=== PATIENT | female | born 1945 | race Caucasian/White ===

== ENCOUNTER 2020-07-21 10:43 | Outpatient (CLI) | payer MEDICARE, SELFPAY ==
--- NOTE | ~2020-07-21 | MM_ITS ---
EXAMINATION: MM screening [facility] BI w rajiv HISTORY: Screening mammogram TECHNIQUE: Craniocaudal and mediolateral oblique 3-D tomosynthesis images were obtained and synthetic 2-D images were generated. CAD analysis was submitted and interpreted. COMPARISON: 07/25/2018, 06/23/2017, 06/15/2016 BREAST PARENCHYMAL COMPOSITION: There are scattered areas of fibroglandular density. FINDINGS: There is no evidence of suspicious mass, calcification, or architectural distortion to sugg est malignancy in either breast. There has been no suspicious interval change. IMPRESSION: 1. No mammographic evidence of malignancy. 2. Recommend routine screening mammography in one year. BI-RADS Category 1: Negative Reviewed, dictated and finalized at location A. ITION THERAPIST
--- NOTE | ~2020-07-21 | DEXA_ITS ---
Bone Density Report Name: Umu Banuelos Age: 74 Sex: Female Ethnicity: White Date of : 1945 Indication: postmenopausal; screening for osteoporosis; Referring Provider: Dutch Trinidad Study: Bone densitometry was performed. Exam Date: July 21, 2020 Accession number: [id number] Bone Density: Region BMD T-score Z-score Classification AP Spine(L1-L4) 1.150 0.9 3.2 Normal Femoral Neck (Left) 0.658 -1.7 0.3 Osteopenia Total Hip (Left) 0.907 -0.3 1.4 Normal Femoral Neck (Right) 0.751 -0.9 1.1 Normal Total Hip (Right) 0.963 0.2 1.9 Normal Femoral Neck Mean 0.704 -1.3 0.7 Osteopenia Total Hip Mean 0.935 -0.1 1.6 Normal World Health Organization criteria for BMD impression classify patients as: Normal (T-score at or above -1.0), Osteopenia (T-score between -1.0 and -2.5), or Osteoporosis (T-score at or below -2.5). 10-year Fracture Risk(1): Major Osteoporotic Fracture 10% Hip Fracture 2.0% Reported Risk Factors: [place] (), Neck BMD=0.658, BMI=38.7 (1) FRAX(R) Version 3.08. Fracture probability calculated for an untreated patient. Fracture probability may be lower if the patient has received treatment. Clinical Information Provided by Patient: Has used the following medications: Vitamin D, Calcium Drinks caffeinated beverages Onset of menses at age 16 Number of children 4 Impression: The patient has low bone mass, based on the Left Femoral Neck T-score. Discussion: BONE DENSITY IS LOW AT ONE OR MORE SKELETAL SITES. This patient's lowest T-score is low at one or more skeletal sites. It meets the World Health Organization's (WHO) criteria for ?low bone mass? (T-score between -1.0 and -2.5). The patient's 10-year risk of fracture as calculated by FRAX is less than the threshold where pharmacological therapy is recommended by the National Osteoporosis Foundation (NOF). However, all treatment decisions require clinical judgment and consideration of individual patient factors, including patient preferences, comorbidities, previous drug use, risk factors not captured in the FRAX model (e.g., frailty, falls, vitamin D deficiency, increased bone turnover, interval significant decline in bone density) and possible under or overestimation of fracture risk by FRAX. The patient should follow a healthful lifestyle (good nutrition with adequate calcium and vitamin D, and appropriate weight-bearing exercise). Follow-Up: Consider repeating this study in 2 to 3 years to reassess this patient's status, or sooner if there is some new clinical indication. Reported by: Dr. Patricio Arriola on 07/21/2020 11:26:00 AM. Reviewed, dictated and finalized at location A. BARRERA
== END 2020-07-21 10:44 | disposition home or self-care (01) ==
LOC: CHSIMG 10:46
PROVIDERS: PCP Internal Medicine; Visit Provider Internal Medicine
DX: Z12.31 Encounter for screening mammogram for malignant neoplasm of breast (principal); M81.0 Age-related osteoporosis without current pathological fracture
CPT/HCPCS: 77063; 77067; 77080

== ENCOUNTER 2020-08-11 11:04 | Outpatient (RCR) | payer MEDICARE, SELFPAY ==
--- NOTE | 2020-08-11 12:13 | PTOPEVAL ---
Thank you for referring Umu Banuelos to [facility].? The patient is scheduled to be seen for therapy? __3__x/week for 12 visits. Please review, sign, date and return this plan of care CECILY. I agree with and certify that the following plan of care is medically necessary. Referring Physician Date Admitting Provider: Attending Provider: Dutch Trinidad MD Referring Provider: *PT Outpatient Evaluation Start: 08/11/20 11:12 Freq: Status: Active Protocol: Document 08/11/20 11:13 ANN-MARIE (Rec: 08/11/20 12:12 ANN-MARIE [email or web address]) Therapy Assessment Status Assessment Status Assessment Status Evaluation Evaluation Information Problem Diagnosis right shoulder pain Onset 06/11/20 Subjective Information Pt. reports that she had a Query Text:As Reported By Patient/ gradual on set of pain about 2 Family months ago. She states that she expereinced no trauma. She states that pain is most notable with reaching behind her back and overhead. She states that shoulder pain will wake her at night and notes difficulty with reaching into her top cabinets. She states that pain is mostly located on the top and front of the right shoulder and it is more of an ache. She states that her goal is to be able to move the right arm with less pain. Prior Level of Function Activity Level (Last 3 Months) Occupation retired Hand Dominance Right Activity of Daily Living Ability Independent Indoor/Home Mobility Independent Community Mobility Independent Stairs Ability Independent Functional Cognition (Planning, Shopping Independent , Taking Medications) Cooking Yes Cleaning Yes Laundry Yes Shopping Yes Driving Yes Pain Assessment Timing of Pain Assessment Timing of Pain Assessment Pre-Treatment Pain Scale Pain Scale Used Numeric (1 - 10) Self Report Pain Assessment Right Upper Shoulder(s) Reported Pain Level 2 Pain Description Aching Lowest Pain Intensity 2 Greatest Pain Intensity 5 Pain Aggravating Factors Exercise/Activity,Lifting, Supine Pain Score Pain Score
== END 2020-09-05 14:51 | disposition home or self-care (01) ==
LOC: CHSPT 11:04
PROVIDERS: PCP Internal Medicine; Visit Provider Internal Medicine
DX: M25.511 Pain in right shoulder (principal)
CPT/HCPCS: 97014; 97110; 97161; G0283

== ENCOUNTER 2021-03-05 01:28 | Day surgery (SDC) | payer MEDICARE, SELFPAY ==
[2021-02-18 12:48] VITALS: BMI 38.7
[2021-03-05 06:53] VITALS: BMI 37.8
[2021-03-05] MEDS: LACTATED RINGERS 1,000 ML 30 ML IV CONT (07:10)
--- NOTE | 2021-03-05 07:29 | WPDANESEPPF ---
Anes - Initial Pre Proc Eval Procedure: Operation Date: 03/05/21 08:00 Proposed Procedures p Screening Colonoscopy - Nilesh Cruz DO Date/Time: 03/05/21 07:29 Surgeon: Nilesh Cruz DO Pre Op Diagnosis: Neosplasm Screening Patient Data Age: 75 Gender: F Height: 1.68 m Weight: 106.2 kg Allergies Allergy/AdvReac Type Severity Reaction Status Date / Time No Known Allergies Allergy Mild Verified 03/05/21 06:50 Home Medications Medication Instructions Recorded Confirmed Type gabapentin 300 mg capsule See Rx Instructions .ROUTE 05/05/20 03/05/21 Rx .COMPLEX #180 cap cholecalciferol (vitamin D3) 125 mcg PO DAILY 02/18/21 03/05/21 History [Dialyvite Vitamin D] cyanocobalamin (vitamin B-12) 1,000 mcg SUBLINGUAL DAILY 02/18/21 03/05/21 History [Vitamin B-12] meloxicam 15 mg PO DAILY 02/18/21 03/05/21 History multivitamin-iron (hematinic) 1 tablet PO DAILY 02/18/21 03/05/21 History [Super B-Complex] Patient hx anesthesia problems: none Family hx anesthesia problems: none [facility] Past Medical History Medical History (Updated 03/05/21 @ 07:29 by Alfonso Herrera MD) Obesity GHANSHYAM (obstructive sleep apnea) Surgical History Surgical History (Updated 03/05/21 @ 07:29 by Alfonso Herrera MD) Hx of tonsillectomy Social History Social History Smoking status: Never smoker Second hand tobacco smoke exposure: No Alcohol intake: current Alcohol use details: 2 PER MONTH Substance use: never Substance use type: does not use Living arrangements: with family Spiritual care concerns: No Anes - Eval Final PreProcedure Day of Procedure 03/05/21 07:29 Patient weight: obese Heart: regular rate and rhythm Lungs: clear to auscultation Airway: Mallampati scale class II Neurological: alert and oriented Last oral intake: >/= 8 hours ASA classification: III Emergent: no Anesthetic plan: proceed Anesthesia type and monitoring: general GIVS and standard monitoring Informed Consent: The patient's anesthetic plan and its attendant risks and benefits were discussed with the patient/family/POA. Questions were solicited and answers provided to the satisfaction of the patient/family/POA.
--- NOTE | 2021-03-05 08:22 | PM.IMHP ---
H&P: HPI History of Present Illness Date/Time: 03/05/21 08:22 Chief Complaint: History of colon polyps Narrative: this is a 75-year-old woman who presents for colonoscopy. Her last colonoscopy was 5 years ago. She had polyps removed at that time. She denies any hematochezia or melena. She denies any family history of colon cancer. Review of Systems Review of Systems: All systems reviewed & are unremarkable except as noted in HPI and below Constitutional: Constitutional: Denies chills, Denies fever(s), Denies headache(s) and Denies weight loss Eyes: Eyes: Denies change in vision ENT: Denies dizziness, Denies headache(s), Denies neck mass and Denies throat swelling Cardiovascular: Cardiovascular: Denies chest pain, Denies lightheadedness and Denies dyspnea Respiratory: Respiratory: Denies cough, Denies dyspnea and Denies wheezing Gastrointestinal: Gastrointestinal: Denies abdominal pain, Denies change in bowel habits, Denies nausea and Denies vomiting Genitourinary: Genitourinary: Denies hematuria and Denies dysuria Musculoskeletal: Musculoskeletal: Reports as per HPI Integumentary/Breasts: Skin/Breast: Reports as per HPI Neurologic: Denies dizziness and Denies headache(s) Allergic/Immunologic: Allergic/Immunologic: Denies throat swelling and Denies wheezing PMFSH Past Medical History Medical History (Updated 03/05/21 @ 08:23 by Nilesh Cruz DO) Obesity GHANSHYAM (obstructive sleep apnea) Surgical History Surgical History (Updated 03/05/21 @ 07:29 by Alfonso Herrera MD) Hx of tonsillectomy Social History Social History Smoking status: Never smoker Second hand tobacco smoke exposure: No Alcohol intake: current Alcohol use details: 2 PER MONTH Substance use: never Substance use type: does not use Living arrangements: with family Spiritual care concerns: No Meds Home Medications and Allergies Home Medications Medication Instructions Recorded Confirmed Type gabapentin 300 mg capsule See Rx Instructions .ROUTE 05/05/20 03/05/21 Rx .COMPLEX #180 cap cholecalciferol (vitamin D3) 125 mcg PO DAILY 02/18/21 03/05/21 History [Dialyvite Vitamin D] cyanocobalamin (vitamin B-12) 1,000 mcg SUBLINGUAL DAILY 02/18/21 03/05/21 History [Vitamin B-12] meloxicam 15 mg PO DAILY 02/18/21 03/05/21 History multivitamin-iron (hematinic) 1 tablet PO DAILY 02/18/21 03/05/21 History [Super B-Complex] Allergies Allergy/AdvReac Type Severity Reaction Status Date / Time No Known Allergies Allergy Mild Verified 03/05/21 06:50 Exam Const: General: no acute distress and alert Orientation/consciousness: patient oriented x3 HENMT: Head: normocephalic and atraumatic Ears: hearing grossly normal bilaterally General nose exam: Normal nares present Mouth: Yes Normal oral and palatal mucosa present Eyes: Periorbital: periorbital findings normal Sclera: sclerae normal EOM: EOMs intact bilaterally Neck: Neck: normal visual inspection, no lymphadenopathy and trachea midline Chest: Chest palpation & inspection: normal inspection of the chest Resp: Effort & Inspection: normal respiratory effort Auscultation: clear to auscultation bilaterally Cardio: Jugular venous distension: no JVD Rate: regular rate Rhythm: regular rhythm Heart sounds: S1 normal heart sound present and S2 normal heart sound present Peripheral pulses: Peripheral pulses 2+ throughout GI: Inspection: normal to inspection GI Palp: Yes Soft to palpation, No Tenderness to palpation present (GI), No Guarding due to palpation present (GI) and No Rebound tenderness present Percussion: Yes normal to percussion Auscultation: normal bowel sounds : General: Yes no CVA tenderness Back/Spine/Pelvis: Back: no CVA tenderness Neuro: General: patient oriented x3, no focal motor deficits and CN's II-XI intact bilaterally Cognition (Neuro): normal cognition Speech
[2021-03-05 09:03] VITALS: BP 111/61; PULSE 62; RESP 19; O2SAT 98
[2021-03-05 09:13] VITALS: BP 119/74; PULSE 59; RESP 18; O2SAT 98
[2021-03-05 09:23] VITALS: BP 132/76; PULSE 59; RESP 18; O2SAT 98
== END 2021-03-05 09:41 | disposition home or self-care (01) ==
PROVIDERS: PCP Internal Medicine; Visit Provider Surgery
PROC: 0DJD8ZZ Inspection of Lower Intestinal Tract, Via Natural or Artificial Opening Endoscopic (ICD-10-PCS; CPT 45378; principal; 2021-03-05 08:00)
DX: Z12.11 Encounter for screening for malignant neoplasm of colon (principal); K63.5 Polyp of colon; G47.33 Obstructive sleep apnea (adult) (pediatric); E66.9 Obesity, unspecified; Z68.37 Body mass index [BMI] 37.0-37.9, adult
CPT/HCPCS: 45380; 88305; J7120

== ENCOUNTER 2021-08-19 11:05 | Outpatient (RCR) | payer MEDICARE, SELFPAY ==
--- NOTE | 2021-08-19 16:00 | PTOPEVAL ---
Thank you for referring Umu Banuelos to [facility].? The patient is scheduled to be seen for therapy? __3__x/week for 12 visits. Please review, sign, date and return this plan of care CECILY. I agree with and certify that the following plan of care is medically necessary. Referring Physician Date Admitting Provider: Attending Provider: Dutch Trinidad MD Referring Provider: *PT Outpatient Evaluation Start: 08/19/21 10:46 Freq: Status: Active Protocol: Document 08/19/21 10:47 ANN-MARIE (Rec: 08/19/21 11:58 ANN-MARIE [email or web address]) Therapy Assessment Status Assessment Status Assessment Status Evaluation Outpatient Past Medical History Neurological History Hx Other Neurological Disorders Yes: NEUROPATHY Cardiovascular History Hx Cardiac Disorders No Significant History Respiratory History Hx Sleep Apnea Yes Gastrointestinal History Hx Polyps Yes Genitourinary History Hx Urinary Tract Infection Yes Musculoskeletal History Hx Arthritis Yes: BILATERAL KNEES Hx Fractures Yes: VERTEBRA 2010 Hematological History Hx Hematological Disorders No Significant History Endocrine History Hx Endocrine Disorders No Significant History HEENT History Hx Tonsillectomy Yes Integumentary History Hx Skin Disorders No Significant History Reproductive History Hx Post Menopausal Yes Psychosocial History Hx Psychiatric Disorders No Significant History Pain History Has Past Pain Affected Your Daily Life Yes: ARTHRITIS BILATERAL KNEES Anesthesia History Hx Anesthesia Reactions No Significant History Evaluation Information Problem Diagnosis bilateral knee pain Onset 08/03/21 Subjective Information Pt. reports that she has had Query Text:As Reported By Patient/ on/off knee pain for several Family years. She recently had a pain flare up. She reports that she has had injections in the past that help, but has not since November. Pt. reports that getting up from a seated position will increase her pain. She reports she can walk for about 30 minutes prior to pain increase. She states that her goal is to decrease her knee pain. Prior Level of Function Activity Level (Last 3 Months) Occupation retired Hand Dominance Right Activity of Daily Living Ability Independent Indoor/Home Mobility Independent Community Mobility
== END 2021-09-30 16:48 | disposition home or self-care (01) ==
LOC: CHSPT 11:05
PROVIDERS: PCP Internal Medicine; Visit Provider Internal Medicine
DX: M25.562 Pain in left knee (principal); M25.561 Pain in right knee
CPT/HCPCS: 97014; 97110; 97161; 97530; G0283

== ENCOUNTER 2021-09-07 08:52 | Outpatient (CLI) | payer MEDICARE, SELFPAY ==
--- NOTE | ~2021-09-07 | XR_ITS ---
EXAMINATION: XR foot LT min 3V DATE: 09/07/2021 09:14 INDICATION: Chronic left midfoot pain TECHNIQUE: Weight bearing dorsal plantar, two oblique and lateral views of the left foot were obtain ed. COMPARISON: None. FINDINGS: Diffuse osteopenia. Alignment is normal. No fracture. Polyarticular osteoarthritis, severe at the fir st tarsal metatarsal joint, moderate severity at the second and third tarsal metatarsal joints and a few interphalangeal joints and mild at the remaining joints at the left foot and ankle. Lucencies wit h thin sclerotic margins at both sides of the second and third tarsal metatarsal joints most likely d egenerative subarticular cystic change. Moderate-sized plantar calcaneal spur and small Achilles calc aneal spur. IMPRESSION: 1. 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 Reviewed, dictated and finalized at location A. NER IMPRESSION: 1. Polyarticular osteoarthritis, moderate to severe at the first-third tarsal m etatarsal joints.
== END 2021-09-07 08:53 | disposition home or self-care (01) ==
LOC: CHSIMG 08:55
PROVIDERS: PCP Internal Medicine; Visit Provider Podiatrist
DX: M79.672 Pain in left foot (principal)
CPT/HCPCS: 73630

== ENCOUNTER 2021-12-15 12:07 | Outpatient (CLI) | payer MEDICARE, SELFPAY ==
--- NOTE | ~2021-12-15 | MM_ITS ---
EXAMINATION: MM screening [facility] BI w rajiv HISTORY: Screening TECHNIQUE: Craniocaudal and mediolateral oblique 3-D tomosynthesis images were obtained and synthetic 2-D images were generated. CAD analysis was submitted and interpreted. COMPARISON: Comparison to multiple prior studies sequentially, with oldest reviewed study dated 01/2013. BREAST PARENCHYMAL COMPOSITION: There are scattered areas of fibroglandular density. FINDINGS: There is no evidence of suspicious mass, calcification, or architectural distortion to sugg est malignancy in either breast. There has been no suspicious interval change. IMPRESSION: 1. No mammographic evidence of malignancy. 2. Recommend routine screening mammography in one year. BI-RADS Category 1: Negative Reviewed, dictated and finalized at location A.
== END 2021-12-15 12:08 | disposition home or self-care (01) ==
LOC: CHSIMG 12:09
PROVIDERS: PCP Internal Medicine; Visit Provider Internal Medicine
DX: Z12.31 Encounter for screening mammogram for malignant neoplasm of breast (principal)
CPT/HCPCS: 77063; 77067

== ENCOUNTER 2021-12-25 11:32 | Outpatient (CLI) | payer MEDICARE, SELFPAY ==
--- NOTE | ~2021-12-25 | XR_ITS ---
EXAMINATION: XR knee RT min 4V DATE: 12/25/2021 12:12 INDICATION: Right knee pain. TECHNIQUE: 4 views of right knee were obtained. COMPARISON: None. FINDINGS: There is varus angulation at the knee. There is lateral subluxation of patella. No fracture . There is severe osteoarthritis of medial and patellofemoral compartments and mild osteoarthritis of lateral compartment. No knee joint effusion. IMPRESSION: 1. Severe right knee osteoarthritis. Reviewed, dictated and finalized at location A.
--- NOTE | ~2021-12-25 | XR_ITS ---
XR knee LT min 4V 12/25/2021 12:12 Indication: Left knee pain Procedure: 4 views left knee Comparison: No prior studies for comparison. Findings: There is severe tricompartment osteoarthritis of the left knee. No fracture, subluxation or dislocation. No significant joint effusion. No radiopaque foreign bodies. Impression: 1: Severe osteoarthritis of the left knee. Reviewed, dictated and finalized at location B. Impression: 1: Severe osteoarthritis of the left knee.
== END 2021-12-25 11:33 | disposition home or self-care (01) ==
LOC: CHSIMG 11:36
PROVIDERS: PCP Internal Medicine; Visit Provider Internal Medicine
DX: M25.562 Pain in left knee (principal); M25.561 Pain in right knee; M17.0 Bilateral primary osteoarthritis of knee
CPT/HCPCS: 73564

== ENCOUNTER 2022-04-21 10:43 | Outpatient (CLI) | payer MEDICARE, SELFPAY ==
--- NOTE | 2022-04-21 11:00 | ECG_ITS ---
Measurements Intervals [place] Rate: 48 P: 34 AR: 181 QRS: 5 QRSD: 89 T: 24 QT: 451 QTc: 406 Interpretive Statements SINUS BRADYCARDIA LEFT VENTRICULAR HYPERTROPHY MINIMAL Q WAVES- HIGH LATERAL LEADS ABNORMAL ECG COMPARED TO ECG 11/20/2018 16:59:11 SINUS BRADYCARDIA NOW PRESENT Electronically Signed On 04-21-2022 14:40:32 CDT by Awais Sanchez D.O.
[2022-04-21 11:24] LABS: Basophils Absolute Auto 0.02 K/mm3 (0.00-0.10); Basophils Percent Auto 0.5 % (0.0-1.0); Eosinophils Absolute Auto 0.04 K/mm3 (0.02-0.50); Hematocrit 40.3 % (35.0-42.0); Hemoglobin 12.6 g/dL (11.7-13.8); Immature Granulocyte Absolute 0.03 K/mm3 (0.00-0.00); Immature Granulocyte Percent A 0.8 % (0.0-0.0); Lymphocytes Absolute Auto 0.96 K/mm3 (1.10-4.50); Mean Corpuscular HGB Conc 31.3 g/dL (32.0-36.0); Mean Corpuscular Hemoglobin 29.9 pg (27.0-31.0); Mean Corpuscular Volume 95.5 fL (78.0-102.0); Mean Platelet Volume 9.9 fl (9.2-11.8); Monocytes Absolute Auto 0.33 K/mm3 (0.10-0.90); Monocytes Percent Auto 8.3 % (2.0-11.0); Neutrophils Absolute Auto 2.6 K/mm3 (1.7-7.2); Neutrophils Percent Auto 65.4 % (50.0-70.0); Platelet Count Result 198 K/mm3 (150-420); Red Blood Count 4.22 M/mm3 (4.20-5.40); Red Cell Distribution Width 13.5 % (11.6-14.4)
[2022-04-21 11:47] LABS: Influenza Control Valid (Valid); SARS-CoV-2 Ag Negative (Negative)
[2022-04-21 11:49] LABS: Strep Group A RT-PCR Not Detected (Negative)
[2022-04-21 11:52] LABS: Anion Gap 7 mmol/L (8-16); Blood Urea Nitrogen 11 mg/dL (7-18); Calcium 8.9 mg/dL (8.5-10.1); Carbon Dioxide 27 mmol/L (21-32); Chloride 106 mmol/L (98-108); Estimated Glomerular Filt Rate > 60; Glucose 88 mg/dL (70-99); Osmolality Calculated 288 mOsm/kg (285-295); Potassium 3.8 mmol/L (3.5-5.1); Sodium 140 mmol/L (136-145); Thyroid Stimulating Hormone 1.11 uIU/mL (0.36-3.74)
== END 2022-04-21 10:44 | disposition home or self-care (01) ==
LOC: CHSLAB 10:46
PROVIDERS: PCP Internal Medicine; Visit Provider Internal Medicine
DX: J06.9 Acute upper respiratory infection, unspecified (principal); R00.1 Bradycardia, unspecified; Z20.822 Contact with and (suspected) exposure to COVID-19
CPT/HCPCS: 80048; 84439; 84443; 84481; 85025; 87426; 87651; 87804; 93005; C9803

== ENCOUNTER 2022-05-07 13:18 | Outpatient (CLI) | payer MEDICARE, SELFPAY ==
--- NOTE | 2022-05-07 01:00 | ECHO_ITS ---
Patient Info Name: Umu Banuelos Age: 76 years : 1945 Gender: Female Ht: 66 in Wt: 240 lbs BSA: 2.30 m2 HR: 60 bpm BP: 130 / 70 mmHg Heart Rhythm: Sinus Rhythm Technical Quality: Fair Exam Date: 05/07/2022 1:13 PM Exam Location: [facility] Patient Status: Outpatient Admit Date: 05/07/2022 Staff Ordering Physician: Dutch Trinidad MD Squirrel Man: Stacy Vazquez RDCS Attending Provider: Dutch Trinidad MD Referring Physician: Amos HUNTER; Exam Type: CA echo doppler color flow Study Info Indications R94.31 - Abnormal electrocardiogram ECG EKG Complete two-dimensional, color flow and Doppler transthoracic echocardiogram is performed. Summary 1. Complete two-dimensional, color flow and Doppler transthoracic echocardiogram is performed. 2. Left ventricular chamber dimension is normal. 3. Left ventricular systolic function is normal, estimated at 65-70%. 4. There is mildly increased left ventricular wall thickness. 5. The left ventricular diastolic function is grade II diastolic dysfunction. 6. E/e' 16 is elevated. 7. Left atrial chamber dimension is moderately enlarged. 8. There is mild aortic valve sclerosis. 9. The mitral valve has moderately calcified annulus. 10. There is trace mitral valve regurgitation. 11. There is mild tricuspid valve regurgitation. 12. Mild pulmonary hypertension, estimated pulmonary arterial systolic pressure is 40 mmHg. Left Ventricle E/e' 16 is elevated. Left ventricular chamber dimension is normal. Left ventricular systolic function is normal, estimated at 65-70%. There is mildly increased left ventricular wall thickness. The left ventricular diastolic function is grade II diastolic dysfunction. Right Ventricle Right ventricular systolic function is normal and with normal TAPSE 2.1 cm. Right ventricular chamber dimension is normal. Left Atria Left atrial chamber dimension is moderately enlarged. Right Atria Right atrial chamber dimension is normal. Aortic Valve The aortic valve is trileaflet. There is mild aortic valve sclerosis. There is no aortic valve stenosis. There is no aortic valve regurgitation. Pulmonic Valve There is no pulmonic regurgitation. Mitral Valve The mitral valve has moderately calcified annulus. There is no mitral valve stenosis. There is trace mitral valve regurgitation. Tricuspid Valve There is mild tricuspid valve regurgitation. Mild pulmonary hypertension, estimated pulmonary arterial systolic pressure is 40 mmHg. Pericardium/Pleural There is no pericardial effusion. Inferior Vena Cava Normal inferior vena cava with >50% collapse upon inspiration consistent with normal right atrial pressure, 5 mmHg. Aorta The aortic root size at the sinus of Valsalva is normal. Left Ventricular Outflow Tract Name Value Normal LVOT 2D LVOT Diameter 1.9 cm LVOT Doppler LVOT Peak Velocity 144 cm/s LVOT Peak Gradient 8 mmHg LVOT Mean Gradient 4 mmHg LVOT VTI 34 cm LVOT VTI/AV VTI Rati
== END 2022-05-07 13:19 | disposition home or self-care (01) ==
LOC: CHSIMG 13:19
PROVIDERS: PCP Internal Medicine; Visit Provider Internal Medicine
DX: R94.31 Abnormal electrocardiogram [ECG] [EKG] (principal)
CPT/HCPCS: 93306

== ENCOUNTER 2022-07-13 10:59 | Outpatient (RCR) | payer MEDICARE, SELFPAY ==
--- NOTE | 2022-07-13 11:51 | PTOPEVAL1 ---
Assessment and note entered by Dang Simpson, PT Evaluation Information Assessment Status Evaluation Diagnosis B Knee Pain Subjective Information Umu Banuelos reports she has been diagnosed with osteoarthritis in both knees after x-rays. She had PT about a year ago. She was referred by her new primary care physician to come back to PT to learn exercises again. She has been getting injections in her knees for the last 3 years that is helping keep her pain down. Her most recent injections were in June 2022. She is noting more pain and limitations in motions in the left knee. She is having difficulty with stairs and she has a basement she goes into for laundry and 2 stairs into the home. She notes she has to use the handrail. Reported Pain Level Pain Score 0: Self Report Assessment PT Clinical Summary Umu Banuelos presents with bilateral knee pain and has been diagnosed with osteoarthritis in the past. She is getting injections for pain control but notes weakness in her knees and has difficulty with stairs. She objectively demonstrates deficits in bilateral knee AROM, decreased bilateral knee and hip strength, impaired gait, decreased dynamic balance, and decreased functional abilities. She will benefit from skilled PT to address these limitations. Plan of Care Interventions Electrical Stimulation,Hot Pack/Cold Pack,Manual Therapy,Neuro Re-education,Patient/Caregiver Educati,Therapeutic Activities,Therapeutic Exercise PT Services Indicated Yes Treatment Frequency and 2 times a week for 8 visits Duration These treatments will address the objective and functional deficits as defined above. The patient will be advanced safely and appropriately in order for the patient to progress towards his/her prior level of function. Additional exercises will be introduced and as well as a comprehensive home exercise program upon discharge, if needed, ?to ensure carryover of functional gains achieved in the clinic. This treatment plan has been reviewed and agreement upon by the patient.
--- NOTE | 2022-07-20 14:55 | PCPTNOTE ---
Umu came in to have her left upper thigh assessed. She started noticing pain in the left upper thigh on 07/19/22 when she brushed it with her hand. She presents with a varicose vein in the upper and medial inner thigh that is tender to palpation. There is stiffness palpated in the tissue surrounding the varicose vein and it extends laterally and distally approximately 3 inches. No signs of bruising, redness, or significant swelling noted. She demonstrates intact left knee and hip strength today. She was referred to call her PCP for further evaluation.
--- NOTE | 2022-09-23 14:14 | PTOPDC ---
Assessment and note entered by Dang Simpson, PT Evaluation Information Assessment Status Discharge - Pt Not Presen Diagnosis B Knee Pain Onset 06/17/22 Subjective Information Umu Banuelos reports she has been diagnosed with osteoarthritis in both knees after x-rays. She had PT about a year ago. She was referred by her new primary care physician to come back to PT to learn exercises again. She has been getting injections in her knees for the last 3 years that is helping keep her pain down. Her most recent injections were in June 2022. She is noting more pain and limitations in motions in the left knee. She is having difficulty with stairs and she has a basement she goes into for laundry and 2 stairs into the home. She notes she has to use the handrail. Assessment PT Clinical Summary Umu Banuelos attended 2 skilled PT visits for bilateral knee pain. She was educated in a home exercise program for hamstring flexibility, knee ROM, and knee/hip strength. At her second visit, she was reporting no pain. She did not return to PT after the second visit so she will be discharged from formal PT. Plan of Care Treatment Frequency and Discharge Duration
== END 2022-07-19 19:00 | disposition home or self-care (01) ==
LOC: CHSPT 10:59
PROVIDERS: PCP Internal Medicine; Visit Provider Internal Medicine
DX: M25.562 Pain in left knee (principal); M25.561 Pain in right knee
CPT/HCPCS: 97110; 97161

== ENCOUNTER 2022-07-23 12:22 | Outpatient (CLI) | payer MEDICARE, SELFPAY ==
--- NOTE | ~2022-07-23 | US_ITS ---
EXAMINATION: US venous doppler [facility] DATE: 07/23/2022 14:57 INDICATION: Lower limb pain TECHNIQUE: Laguerre scale images without and with compression and Doppler images of the bilateral lower e xtremity veins were obtained. COMPARISON: 02/26/2016 FINDINGS: The right common femoral vein, profunda femoral vein, femoral vein, popliteal vein, peroneal trunk, p osterior tibial veins, and greater saphenous vein are patent. There is thrombus in the left popliteal, peroneal, greater saphenous, and lesser saphenous veins. The left common femoral vein, profunda femoral vein, femoral vein, posterior tibial veins are patent. Th ere are thrombosed superficial varicose veins of the left leg. IMPRESSION: 1. Thrombosis of the left popliteal, peroneal, greater saphenous, and lesser saphenous veins. 2. Patent right lower extremity veins. Reviewed, dictated and finalized at location A. ICIAN ANESTHESIOLOGIST IMPRESSION: 1. Thrombosis of the left popliteal, peroneal, greater saphenous, and lesser sa phenous veins. 2. Patent right lower extremity veins.
[2022-07-23 12:41] LABS: Basophils Absolute Auto 0.02 K/mm3 (0.00-0.10); Basophils Percent Auto 0.3 % (0.0-1.0); Eosinophils Absolute Auto 0.11 K/mm3 (0.02-0.50); Eosinophils Percent Auto 1.8 % (1.0-6.0); Hematocrit 41.5 % (35.0-42.0); Hemoglobin 13.1 g/dL (11.7-13.8); Immature Granulocyte Absolute 0.04 K/mm3 (0.00-0.00); Immature Granulocyte Percent A 0.6 % (0.0-0.0); Lymphocytes Absolute Auto 1.05 K/mm3 (1.10-4.50); Mean Corpuscular HGB Conc 31.6 g/dL (32.0-36.0); Mean Platelet Volume 9.7 fl (9.2-11.8); Monocytes Absolute Auto 0.48 K/mm3 (0.10-0.90); Monocytes Percent Auto 7.8 % (2.0-11.0); Neutrophils Absolute Auto 4.5 K/mm3 (1.7-7.2); Neutrophils Percent Auto 72.5 % (50.0-70.0); Platelet Count Result 200 K/mm3 (150-420); Red Blood Count 4.37 M/mm3 (4.20-5.40); Red Cell Distribution Width 13.1 % (11.6-14.4); White Blood Count 6.2 K/mm3 (4.8-10.8)
[2022-07-23 13:03] LABS: D Dimer 1.34 mg/L (0.19-0.50)
[2022-07-23 13:16] LABS: Anion Gap 8 mmol/L (8-16); Blood Urea Nitrogen 17 mg/dL (7-18); Calcium 8.6 mg/dL (8.5-10.1); Carbon Dioxide 28 mmol/L (21-32); Chloride 106 mmol/L (98-108); Estimated Glomerular Filt Rate > 60; Glucose 89 mg/dL (70-99); Osmolality Calculated 294 mOsm/kg (285-295); Potassium 4.2 mmol/L (3.5-5.1); Sodium 142 mmol/L (136-145)
== END 2022-07-23 12:23 | disposition home or self-care (01) ==
PROVIDERS: PCP Family Medicine; Visit Provider Family Medicine
DX: I82.432 Acute embolism and thrombosis of left popliteal vein (principal); I82.452 Acute embolism and thrombosis of left peroneal vein; I82.890 Acute embolism and thrombosis of other specified veins; R79.89 Other specified abnormal findings of blood chemistry
CPT/HCPCS: 36415; 80048; 85025; 85380; 93970

== ENCOUNTER 2022-08-30 14:49 | Outpatient (CLI) | payer MEDICARE, SELFPAY ==
[2022-08-30 15:11] LABS: Basophils Absolute Auto 0.02 K/mm3 (0.00-0.10); Basophils Percent Auto 0.4 % (0.0-1.0); Eosinophils Absolute Auto 0.05 K/mm3 (0.02-0.50); Eosinophils Percent Auto 0.9 % (1.0-6.0); Hematocrit 40.2 % (35.0-42.0); Hemoglobin 12.7 g/dL (11.7-13.8); Immature Granulocyte Absolute 0.03 K/mm3 (0.00-0.00); Immature Granulocyte Percent A 0.6 % (0.0-0.0); Lymphocytes Absolute Auto 1.16 K/mm3 (1.10-4.50); Lymphocytes Percent Auto 21.7 % (18.0-42.0); Mean Corpuscular HGB Conc 31.6 g/dL (32.0-36.0); Mean Corpuscular Hemoglobin 30.1 pg (27.0-31.0); Mean Corpuscular Volume 95.3 fL (78.0-102.0); Mean Platelet Volume 9.6 fl (9.2-11.8); Monocytes Absolute Auto 0.42 K/mm3 (0.10-0.90); Monocytes Percent Auto 7.9 % (2.0-11.0); Neutrophils Absolute Auto 3.7 K/mm3 (1.7-7.2); Neutrophils Percent Auto 68.5 % (50.0-70.0); Platelet Count Result 219 K/mm3 (150-420); Red Blood Count 4.22 M/mm3 (4.20-5.40); Red Cell Distribution Width 13.2 % (11.6-14.4); White Blood Count 5.3 K/mm3 (4.8-10.8)
[2022-08-30 15:28] LABS: INR 1.1; Partial Thromboplastin Time 29.3 SEC (23.90-30.70); Prothrombin Time 11.5 Seconds (9.50-12.10)
== END 2022-08-30 14:50 | disposition home or self-care (01) ==
LOC: CHSLAB 14:51
PROVIDERS: PCP Internal Medicine; Visit Provider Internal Medicine
DX: R21 Rash and other nonspecific skin eruption (principal); Z79.01 Long term (current) use of anticoagulants
CPT/HCPCS: 36415; 85025; 85610; 85730

== ENCOUNTER 2023-01-05 14:54 | Outpatient (RCR) | payer MEDICARE, SELFPAY ==
--- NOTE | 2023-01-05 15:54 | PTOPEVAL1 ---
Assessment and note entered by Pranay De Luna Evaluation Information Assessment Status Evaluation Diagnosis bilateral knee pain Onset 12/28/22 Subjective Information Pt. reports she will undergo knee replacement on . She states that she has been using a cane more recently. She reports she saw her doctor recently who was worried about her strength. she has exercises that she performs at home daily. she does states that she was given the exercise from her surgery but has some confusion with some of the exercises. she reports that she has no trouble sleeping at night. She reports that her knee is very stiff and she cannot walk any signficant distance due to her left knee pain. She reports that her goal is to be independent with exercise. Reported Pain Level Pain Score 5: Self Report Assessment PT Clinical Summary Pt. enters the clinic with bilateral knee pain. She is set to have surgery in 1 month. She currently has been performing a HEP addressing ROM with some reported confusion. She currently presents with impaired ROM, impaired strength and impaired gait. Continued skilled PT is indicated in order to improve mobility and strength to maximize function and pt. surgical outcome. Plan of Care Interventions Electrical Stimulation,Gait Training,Hot Pack/Cold Pack,Manual Therapy,Therapeutic Activities, Therapeutic Exercise PT Services Indicated Yes Treatment Frequency and 1x/week x 4 visits Duration These treatments will address the objective and functional deficits as defined above. The patient will be advanced safely and appropriately in order for the patient to progress towards his/her prior level of function. Additional exercises will be introduced and as well as a comprehensive home exercise program upon discharge, if needed, ?to ensure carryover of functional gains achieved in the clinic. This treatment plan has been reviewed and agreement upon by the patient.
--- NOTE | 2023-01-05 15:54 | OPREHPOC ---
Outpatient Therapy Plan of Care This is a Multidisciplinary Plan of Care that may contain components documented by all disciplines (PT, OT, and ST.) PT Problem 1 PT Problem #1 Knowledge Deficit PT Goal 1 Goal Demonstrate indeepndence with a HEP addressing mobility druze. Target Visit 4 PT Problem 2 PT Problem #2 Impaired Range of Motion PT Goal 1 Goal Pt. will achieve 0-120 degrees left knee AROM PT Problem 3 PT Problem #3 Impaired Strength PT Goal 1 Goal Pt. will increase proximal l.e. strength to 5/5 to improve standing endurance
--- NOTE | 2023-02-02 13:45 | OPREHPOC ---
Outpatient Therapy Plan of Care This is a Multidisciplinary Plan of Care that may contain components documented by all disciplines (PT, OT, and ST.) PT Problem 1 PT Problem #1 Knowledge Deficit PT Goal 1 Goal Demonstrate indeepndence with a HEP addressing mobility moravian. Target Visit 4 Progress Met PT Problem 2 PT Problem #2 Impaired Range of Motion PT Goal 1 Goal Pt. will achieve 0-120 degrees left knee AROM Progress Not Met PT Problem 3 PT Problem #3 Impaired Strength PT Goal 1 Goal Pt. will increase proximal l.e. strength to 5/5 to improve standing endurance Progress Not Met
--- NOTE | 2023-02-02 13:46 | PTOPDC ---
Assessment and note entered by Sophy Rojo DPT Evaluation Information Assessment Status Re-evaluation Diagnosis bilateral knee pain Onset 12/28/22 Subjective Information Pt. reports she will undergo knee replacement on . She reports she will have home health after but is unsure if she will have OP PT. She reports independence with HEP Reported Pain Level Pain Score 7: Self Report Assessment PT Clinical Summary Patient was seen for 4 visits of skilled PT. Patient made improvements in L knee flexion during POC. She is scheduled to undergo L TKA on 02/03/23 . She is independent with HEP and will be discharged at this time. Plan of Care PT Services Indicated No
== END 2023-02-02 14:06 | disposition home or self-care (01) ==
LOC: CHSPT 14:54
PROVIDERS: PCP Internal Medicine; Visit Provider Internal Medicine
DX: M25.561 Pain in right knee (principal); M25.562 Pain in left knee
CPT/HCPCS: 97110; 97161

== ENCOUNTER 2023-02-22 10:51 | Outpatient (CLI) | payer MEDICARE, SELFPAY ==
--- NOTE | ~2023-02-22 | US_ITS ---
US venous doppler [facility] DATE: 02/22/2023 11:32 INDICATION: Left calf swelling. Left knee replacement 2 weeks ago. Bruising, swelling. TECHNIQUE: Real-time and color flow imaging and Doppler analysis of the veins of the left lower extre mity COMPARISON: None FINDINGS: The left greater saphenous vein is patent. There is spontaneous and phasic flow and normal augmentation and color flow signal and normal compression of the deep veins of the left lower extremi ty, without evidence of deep venous thrombosis. IMPRESSION: No evidence of deep venous thrombosis of left lower extremity Reviewed, dictated and finalized at Location A. Reviewed, dictated and finalized at location L.
== END 2023-02-22 10:52 | disposition home or self-care (01) ==
LOC: CHSIMG 10:57
PROVIDERS: PCP Internal Medicine; Visit Provider Internal Medicine
DX: M79.89 Other specified soft tissue disorders (principal)
CPT/HCPCS: 93971

== ENCOUNTER 2023-03-31 14:32 | Outpatient (RCR) | payer MEDICARE, SELFPAY ==
--- NOTE | 2023-03-31 16:10 | PTOPEVAL1 ---
Assessment and note entered by Dang Simpson, PT Evaluation Information Assessment Status Evaluation Diagnosis s/p L TKA Onset 02/03/23 Subjective Information Umu Banuelos reports she had her left knee replaced on 02/03/23. She had home health PT for 4 weeks. She has been using a cane still mostly because her right knee is needing to be replaced. She saw her surgeon 2 weeks ago and the left replacement looked good in the x-ray but the right knee needs to be replaced. She is hoping to put the right knee off for a year but would like to be able to walk without her cane. 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 She was able to straighten her left knee all the way and bend to 111 degrees with home health PT. She has steps into her basement where she has to go for laundry. She is able to take stairs reciprocally but has to use both hand rails. She denies falls since surgery. Reported Pain Level Pain Score 0: Self Report Assessment PT Clinical Summary Umu Banuelos presents 8 weeks s/p left total knee arthroplasty. She has difficulty with walking long distances and bending the left knee. She also needs to have her right knee replaced and feels unstable due to weakness in the right knee. She objectively demonstrates decreased left knee flexion active ROM, decreased right knee extension AROM, decreased LE strength bilaterally, impaired gait, impaired balance, decreased endurance, and decreased functional abilities. Scores on standard balance tests indicate she is a moderate fall risk. She will benefit from skilled PT to address these limitations. Plan of Care Interventions Electrical Stimulation,Gait Training,Hot Pack/Cold Pack,Intermittent Compression,Manual Therapy, Neuro Re-education,Patient/Caregiver Educati, Therapeutic Activities,Therapeutic Exercise PT Services Indicated Yes Treatment Frequency and 2 times a week for 10 visits Duration These treatments will address the objective and functional deficits as defined above. The patient will be advanced safely and appropriately in order for the patient to progress towards his/her prior level of function. Additional exercises will be introduced and as well as a comprehensive home exercise program upon discharge, if needed, ?to ensure carryover of functional gains achieved in the clinic. This
--- NOTE | 2023-03-31 16:10 | OPREHPOC ---
Outpatient Therapy Plan of Care This is a Multidisciplinary Plan of Care that may contain components documented by all disciplines (PT, OT, and ST.) PT Problem 1 PT Problem #1 Knowledge Deficit PT Goal 1 Goal The patient will demonstrate independence with a home exercise program to continue after discharge from formal PT. Target Visit 10 PT Problem 2 PT Problem #2 Pain PT Goal 1 Goal The patient will report no greater than 2/10 left or right knee pain with walking and standing > 30 minutes. Target Visit 10 PT Problem 3 PT Problem #3 Impaired Range of Motion PT Goal 1 Goal The patient will demonstrate left and right knee AROM of 0-120 degrees to improve gait and stair negotiation. Target Visit 10 PT Problem 4 PT Problem #4 Impaired Balance PT Goal 1 Goal The patient will improve Tinetti Balance score to at least 24 indicating a low fall risk. Target Visit 10 PT Problem 5 PT Problem #5 Impaired Endurance PT Goal 1 Goal The patient will be able to ambulate 1,200 feet without a rest break during the 6 minute walk test to improve community ambulation. Target Visit 10
--- NOTE | 2023-05-05 12:29 | PTOPPROG ---
Assessment and note entered by Dang Simpson, PT Evaluation Information Assessment Status Evaluation Diagnosis s/p L TKA Onset 02/03/23 Subjective Information Umu Banuelos reports that her left knee is doing better overall. She is noting minimal pain except occasionally she has pain when sleeping. She is using her cane when she goes out but does not use it around the house. She still feels unsteady when she does not use her cane. She also notes difficulty going up stairs noting she has to use the handrail because her legs feel weak. Assessment PT Clinical Summary Umu Banuelos has completed 10 skilled PT visits following a left TKA. She is reporting minimal pain but she still has difficulty walking without her cane due to decreased balance and she has difficulty with stairs due to weakness. She objectively demonstrates improved knee flexion strength, decreased time on her TUG test, improved distance on her 6 minute walk test, and improved scores on her Tinetti Balance Test. She continues to demonstrate decreased left knee AROM, decreased left knee and hip strength, decreased balance, and decreased endurance. Her Tinetti Balance score continues to show she is a moderate fall risk. She will continue to benefit from skilled PT to further address these ongoing deficits and return her to her previous level of function. Plan of Care Interventions Electrical Stimulation,Hot Pack/Cold Pack,Manual Therapy,Neuro Re-education,Patient/Caregiver Educati,Therapeutic Activities,Therapeutic Exercise PT Services Indicated Yes Treatment Frequency and 2 times a week for 10 visits Duration These treatments will address the objective and functional deficits as defined above. The patient will be advanced safely and appropriately in order for the patient to progress towards his/her prior level of function. Additional exercises will be introduced and as well as a comprehensive home exercise program upon discharge, if needed, ?to ensure carryover of functional gains achieved in the clinic. This treatment plan has been reviewed and agreement upon by the patient.
--- NOTE | 2023-05-05 12:29 | OPREHPOC ---
Outpatient Therapy Plan of Care This is a Multidisciplinary Plan of Care that may contain components documented by all disciplines (PT, OT, and ST.) PT Problem 1 PT Problem #1 Knowledge Deficit PT Goal 1 Goal The patient will demonstrate independence with a home exercise program to continue after discharge from formal PT. Target Visit 20 Progress Partially Met Comment continue PT Problem 2 PT Problem #2 Pain PT Goal 1 Goal The patient will report no greater than 2/10 left or right knee pain with walking and standing > 30 minutes. Target Visit 20 Progress Partially Met Comment continue PT Problem 3 PT Problem #3 Impaired Range of Motion PT Goal 1 Goal The patient will demonstrate left and right knee AROM of 0-120 degrees to improve gait and stair negotiation. Target Visit 20 Progress Not Met Comment continue PT Problem 4 PT Problem #4 Impaired Balance PT Goal 1 Goal The patient will improve Tinetti Balance score to at least 24 indicating a low fall risk. Target Visit 20 Progress Partially Met Comment continue PT Problem 5 PT Problem #5 Impaired Endurance PT Goal 1 Goal The patient will be able to ambulate 1,200 feet without a rest break during the 6 minute walk test to improve community ambulation. Target Visit 20 Progress Partially Met Comment continue
--- NOTE | 2023-06-09 14:50 | OPREHPOC ---
Outpatient Therapy Plan of Care This is a Multidisciplinary Plan of Care that may contain components documented by all disciplines (PT, OT, and ST.) PT Problem 1 PT Problem #1 Knowledge Deficit PT Goal 1 Goal The patient will demonstrate independence with a home exercise program to continue after discharge from formal PT. Target Visit 20 Progress Met PT Problem 2 PT Problem #2 Pain PT Goal 1 Goal The patient will report no greater than 2/10 left or right knee pain with walking and standing > 30 minutes. Target Visit 20 Progress Met PT Problem 3 PT Problem #3 Impaired Range of Motion PT Goal 1 Goal The patient will demonstrate left and right knee AROM of 0-120 degrees to improve gait and stair negotiation. Target Visit 20 Progress Partially Met PT Problem 4 PT Problem #4 Impaired Balance PT Goal 1 Goal The patient will improve Tinetti Balance score to at least 24 indicating a low fall risk. Target Visit 20 Progress Met PT Problem 5 PT Problem #5 Impaired Endurance PT Goal 1 Goal The patient will be able to ambulate 1,200 feet without a rest break during the 6 minute walk test to improve community ambulation. Target Visit 20 Progress Partially Met
--- NOTE | 2023-06-09 14:50 | PTOPDC ---
Assessment and note entered by Dang Simpson, PT Evaluation Information Assessment Status Discharge Diagnosis L TKA Onset 02/03/23 Subjective Information Umu Banuelos reports that her knee is still stiff but the pain has decreased a lot. She still uses her cane but more for balance. She is able to perform most daily activities with increased time needed for yard work. She is going up and down stairs to her basement with a hand rail but does not use her cane. She feels she has improved 60% overall. She has not scheduled anything but reports her right knee will eventually need to be replaced. Reported Pain Level Pain Score 0: Self Report Assessment PT Clinical Summary Umu Banuelos has completed 19 skilled PT visits for left knee pain following a total knee arthroplasty performed on 02/03/23. She is reporting a 60% overall improvement and is able to perform most of her previous activities with extra time needed for yard work. She objectively demonstrates improved left knee AROM, improved left knee and hip strength, improved gait, and improved balance. She is now a low fall risk. She is independent in a home exercise program and will be discharged. Plan of Care PT Services Indicated Yes
== END 2023-06-09 11:28 | disposition home or self-care (01) ==
LOC: CHSPT 14:32
PROVIDERS: PCP Internal Medicine; Visit Provider Internal Medicine
DX: Z47.1 Aftercare following joint replacement surgery (principal); Z96.652 Presence of left artificial knee joint
CPT/HCPCS: 97016; 97110; 97112; 97140; 97161; 97530; 97750

== ENCOUNTER 2023-04-21 13:49 | Outpatient (CLI) | payer MEDICARE, SELFPAY ==
--- NOTE | ~2023-04-21 | US_ITS ---
EXAMINATION: US venous doppler [facility] DATE: 04/21/2023 14:29 INDICATION: Left lower limb edema and pain. TECHNIQUE: Grayscale ultrasound images without and with compression and Doppler ultrasound images of the left lower extremity veins were obtained. COMPARISON: None. FINDINGS: The visualized portions of left common femoral vein, profunda (deep) femoral vein, femoral vein, popl iteal vein, peroneal veins, posterior tibial veins, and greater saphenous vein outflow are patent. IMPRESSION: 1. No deep venous thrombosis. Reviewed, dictated and finalized at location A.
== END 2023-04-21 13:50 | disposition home or self-care (01) ==
LOC: CHSIMG 13:52
PROVIDERS: PCP Internal Medicine
DX: R60.0 Localized edema (principal)
CPT/HCPCS: 93971

== ENCOUNTER 2023-08-18 14:55 | Outpatient (CLI) | payer MEDICARE, SELFPAY ==
--- NOTE | ~2023-08-18 | US_ITS ---
EXAMINATION: US venous doppler [facility] DATE: 08/18/2023 15:33 INDICATION: Left lower limb swelling. TECHNIQUE: Grayscale ultrasound images without and with compression and Doppler ultrasound images of the left lower extremity veins were obtained. COMPARISON: Ultrasound 04/21/2023 FINDINGS: The visualized portions of left common femoral vein, profunda (deep) femoral vein, femoral vein, popl iteal vein, peroneal veins, posterior tibial veins, and greater saphenous vein outflow are patent. IMPRESSION: 1. No deep venous thrombosis. Reviewed, dictated and finalized at location A. ORK LEAD
[2023-08-18 15:38] LABS: CRP 0.7 mg/dL (0.0-0.9)
[2023-08-18 16:08] LABS: D Dimer 0.82 mg/L (0.19-0.50)
[2023-08-18 16:15] LABS: Erythrocyte Sedimentation Rate 25 mm/hr (0-20)
[2023-08-18 16:54] LABS: Basophils Absolute Auto 0.03 K/mm3 (0.00-0.10); Basophils Percent Auto 0.7 % (0.0-1.0); Eosinophils Absolute Auto 0.06 K/mm3 (0.02-0.50); Eosinophils Percent Auto 1.4 % (1.0-6.0); Hematocrit 41.1 % (35.0-42.0); Hemoglobin 12.8 g/dL (11.7-13.8); Immature Granulocyte Absolute 0.04 K/mm3 (0.00-0.00); Immature Granulocyte Percent A 0.9 % (0.0-0.0); Lymphocytes Absolute Auto 1.27 K/mm3 (1.10-4.50); Lymphocytes Percent Auto 29.7 % (18.0-42.0); Mean Corpuscular HGB Conc 31.1 g/dL (32.0-36.0); Mean Corpuscular Volume 93.2 fL (78.0-102.0); Monocytes Absolute Auto 0.39 K/mm3 (0.10-0.90); Monocytes Percent Auto 9.1 % (2.0-11.0); Neutrophils Absolute Auto 2.5 K/mm3 (1.7-7.2); Neutrophils Percent Auto 58.2 % (50.0-70.0); Platelet Count Result 240 K/mm3 (150-420); Red Blood Count 4.41 M/mm3 (4.20-5.40); Red Cell Distribution Width 14.2 % (11.6-14.4); White Blood Count 4.3 K/mm3 (4.8-10.8)
== END 2023-08-18 14:56 | disposition home or self-care (01) ==
LOC: CHSLAB 14:59
PROVIDERS: PCP Internal Medicine; Visit Provider Internal Medicine
DX: D70.9 Neutropenia, unspecified (principal); L03.116 Cellulitis of left lower limb; M79.89 Other specified soft tissue disorders
CPT/HCPCS: 36415; 85025; 85380; 85652; 86140; 93971

== ENCOUNTER 2023-09-26 12:33 | Outpatient (CLI) | payer MEDICARE, SELFPAY ==
--- NOTE | ~2023-09-26 | CT_ITS ---
EXAMINATION: CT LE LT wo con DATE: 09/26/2023 13:38 INDICATION: Postoperative left leg pain, swelling and discoloration. TECHNIQUE: High resolution computed tomography (CT) of the left lower leg from the knee through the f oot was performed without intravenous contrast. Additional sagittal and coronal reconstructions were performed. Automated exposure control and iterative reconstruction technique were employed. The dose- length product was 1215.33 mGy-cm. COMPARISON: None FINDINGS: Left total knee arthroplasty with patellar resurfacing which appears well seated in near-anatomic ali gnment. No periprosthetic lucency to suggest loosening or infection. Small knee joint effusion. No fr actures. Polyarticular osteoarthritis, moderate to severe with subarticular cystic changes at the fir st-third tarsal metatarsal and navicular cuneiform joints in the midfoot. Additional mild osteoarthri tis at the ankle and remaining joints in the foot. There is progressively increasing subcutaneous michelle ma beginning in the mid third of the calf and extending to the ankle which along with multiple dystro phic calcification in the subcutaneous tissues at the medial aspect of the distal calf can be seen in the setting of chronic venous insufficiency. Minimal vascular opacification along the popliteal alissa ry, tibioperoneal trunk at the proximal peroneal and posterior tibial arteries. There are scattered s ubcutaneous varicosities most prominent at the medial aspect of the knee. Relatively uniform diffuse mild likely age-related fatty atrophy of the musculature of the calf. IMPRESSION: 1. Expected appearance of a left total knee arthroplasty with patellar resurfacing and with small kne e joint effusion. 2. Polyarticular osteoarthritis, moderate to severe in the midfoot. 3. Subcutaneous edema in the mid to distal calf with dystrophic subcutaneous calcific lesions at the medial aspect of the distal calf which can be seen with venous insufficiency. Reviewed, dictated and finalized at location A. PROMENADE TILE SETTER IMPRESSION: 1. Expected appearance of a left total knee arthroplasty with patellar resurfac ing and with small knee joint effusion. 2. Polyarticular osteoarthritis, moderate to severe in the midfoot. 3. Subcutaneous edema in the mid to distal calf with dystrophic subcutaneous ca lcific lesions at the medial aspect of the distal calf which can be seen with v enous insufficiency.
--- NOTE | ~2023-09-26 | US_ITS ---
EXAMINATION: US art doppler w press LE BI DATE: 09/26/2023 13:27 INDICATION: Peripheral arterial occlusive disease presenting with postoperative left lower limb pain, swelling and discoloration. TECHNIQUE: Segmental pressures and plethysmographic and Doppler waveforms of the brachial and lower e xtremity arteries were obtained. COMPARISON: None. FINDINGS: Right and left brachial artery pressures of 145 mm Hg and 131 mm Hg, respectively, are concordant (no rmal difference <= 30 mmHg). The right ankle-brachial index (UVALDO) is 1.48 (normal >= 0.9-1). The right great toe-brachial index (T BI) is 1.10 (normal >= 0.6-0.8). Arterial waveforms are triphasic at the right common femoral artery and biphasic at the right popliteal, posterior tibial and dorsalis pedis arteries with brisk systolic upstrokes throughout. The left UVALDO is 1.30. The left TBI is 1.00. Arterial waveforms are triphasic at the left common femor al, popliteal and posterior tibial arteries and biphasic at the left dorsalis pedis artery, all with brisk systolic upstrokes. IMPRESSION: 1. No significant arterial occlusive disease to either lower limb with normal bilateral ABIs and TBIs . Reviewed, dictated and finalized at location A. ECTION SUPPORT SPECIALIST IMPRESSION: 1. No significant arterial occlusive disease to either lower limb with normal b ilateral ABIs and TBIs.
== END 2023-09-26 12:34 | disposition home or self-care (01) ==
LOC: CHSIMG 12:35
PROVIDERS: PCP Internal Medicine; Visit Provider Internal Medicine
DX: G89.18 Other acute postprocedural pain (principal); I73.9 Peripheral vascular disease, unspecified; M79.89 Other specified soft tissue disorders; Z96.652 Presence of left artificial knee joint; M25.462 Effusion, left knee; M17.12 Unilateral primary osteoarthritis, left knee
CPT/HCPCS: 73700; 93923

== ENCOUNTER 2024-08-21 12:25 | Outpatient (CLI) | payer MEDICARE, SELFPAY ==
--- NOTE | ~2024-08-21 | MM_ITS ---
EXAMINATION: MM screening timmy BI w rajiv HISTORY: Screening mammogram TECHNIQUE: Craniocaudal and mediolateral oblique 3-D tomosynthesis images were obtained and synthetic 2-D images were generated. CAD analysis was submitted and interpreted. COMPARISON: 12/15/2021, 07/21/2020 BREAST PARENCHYMAL COMPOSITION:Not Dense. The breasts are almost entirely fatty FINDINGS: No suspicious mass, calcification, or architectural distortion are identified in either joce ast to suggest malignancy. There has been no suspicious interval change. IMPRESSION: No mammographic evidence of malignancy. Recommend routine screening mammography in one year. BI-RADS Category 1: Negative Reviewed, dictated and finalized at location . F SUSTAINABILITY OFFICER
== END 2024-08-21 12:26 | disposition home or self-care (01) ==
PROVIDERS: PCP Internal Medicine; Visit Provider Internal Medicine
DX: Z12.31 Encounter for screening mammogram for malignant neoplasm of breast (principal)
CPT/HCPCS: 77063; 77067

== ENCOUNTER 2024-11-09 14:39 | Outpatient (CLI) | payer MEDICARE, SELFPAY ==
--- NOTE | ~2024-11-09 | XR_ITS ---
CHEST RADIOGRAPH, PA AND LATERAL CLINICAL HISTORY: COUGH/SOB x1 week . COMPARISON: 10/25/2012 TECHNIQUE: PA and lateral views of the chest. FINDINGS Large hiatal hernia with a large air-fluid level, which extends to the level of the aortic arch, demo nstrating an interval change from previous examination performed more than 10 years earlier. The remainder of the cardiomediastinal silhouette is otherwise unremarkable. Lung volume in the left hemithorax is limited, secondary to the large hiatal hernia, but are otherwis e clear. IMPRESSION: Large hiatal hernia, without focal infiltrate or effusion. Reviewed, dictated and finalized at location A.
--- OUTSIDE RECORDS SUMMARY | 2024-11-09 14:47 | XMS_ITS ---
Author Organization [facility] Address [address] [place], [place] [id number] Care Team Providers Care Vat Skimmer Name Role Phone ELEN ROJAS Unavailable [phone] Dutch Trinidad Unavailable Unavailable SANJIV CHONG Unavailable [phone] REASON FOR VISIT *General care Encounters Encounter Location Date Provider Diagnosis [facility] [address] [place], [place] [id number] 11/17/2023 SANJIV CHONG Plan Of Treatment Next Appt Details Provider Name:SHERWIN RIDLEY, 12/27/2024 10:50:00 AM, [address] [place] [address], [phone], Progress Notes * SANGEETHA HUSSEIN HDOB: (78 yo F)Acc No.[id number]:11/17/2023 Patient: Viki SANGEETHA JOHNSON Provider: Maria Victoria CHONG :1945 A ge:77 Y S ex:Female Date:11/17/2023 Address:[id number] [place] [address], [id number] Subjective: * Chief Complaints: * 1 . *General care. * Medical History: Objective: * Vitals: Assessment: Plan: * Treatment: * Billing Information: * Visit Code: * Procedure Codes: * Electronic signature of DEREK CHONG DPM on 11/09/2024 at 02:46 PM CDT Sign off status: Pending * Provider: Maria Victoria CHONG Date: 0 11/17/2023 Generated for Deisy henry/Nina/Denis on: 0 11/09/2024 02:46 PM CDT
--- OUTSIDE RECORDS SUMMARY | 2024-11-09 14:47 | XMS_ITS | Clinical Summary ---
Author Organization [facility] Address [address] [place] [address] Care Team Providers Care Accounting System Expert Name Role Phone Dutch Trinidad MD Primary Care Provider [phone] Allergies No known active allergies Medications cholecalciferol (VITAMIN D-3) 2000 unit capsule Active gabapentin (NEURONTIN) 300 mg capsule TAKE 1 CAPSULE BY MOUTH EVERY DAY FOR 1 WEEK, THEN TAKE 2 CAPSULES AT BEDTIME AFTER 2 01/19/2019 Active qpeemdnd-psu-XS -lycopen-lutein 0.4 mg-300 mcg- 250 mcg tablet Activ e cyanocobalamin (Vitamin B-12) 1,000 mcg sublingual tablet Take 1 tablet (1,000 mcg total) by mouth daily 08/14/2022 Active celecoxib (CeleBREX) 200 mg capsule Take 1 capsule (200 mg total) by mouth 2 (two) times a day 11/07/2023 Active doxycycline 100 mg tablet Take 1 tablet/capsul e (100 mg total) by mouth 2 (two) times a day 11/18/2023 Active potassium chloride ER 10 mEq CR tablet Take 1 tablet/capsul e (10 mEq total) by mouth 10/26/2023 Active torsemide (DEMADEX) 10 mg tablet Take 1 tablet (10 mg total) by mouth daily 10/26/2023 Active triamcinolone (KENALOG) 0.1 % cream APPLY THIN COAT TO AFFECTED AREA TWICE A DAY 11/18/2023 Active Active Problems Problem Noted Date Diagnosed Date Primary osteoarthritis of left knee 07/16/2019 Knee pain 12/22/2017 Disorder of vein 02/19/2014 Immunizations Immunization Administration Dates Next Due Hep A, Adult 02/12/2000,08/14/1999 Influenza, Quadrivalent, Split, Intramuscular Influenza, Quadrivalent, Spl it, Preservative Free, Intramuscular 07/16/2021 Social History Tobacco Use Types Packs/Day Years Used Date Smoking Tobacco: Never Passive Smoke Exposure: Never Smokeless Tobacco: Never Tobacco Cessation:Counseling Given: Not Answered Alcohol Use Standard Drinks/Week Comments Yes 0 (1 standard drink = 0.6 oz pur e alcohol) Comments Unknown Sex and Gender Information Value Date Recorded Sex Assigned at Not on file 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 Gender Identity Not on file Sexual Orientation Not on file Obstetrics History Last Filed Vital Signs Vital Sign Reading Time Taken Comments Blood Pressure 160/80 11/30/2023 2:00 PM CDT Pulse 83 11/30/2023 2:00 PM CDT Temperature 36.8 C (98.2 F) 11/30/2023 2:00 PM CDT Respiratory Rate - - Oxygen Saturation 97% 11/30/2023 2:00 PM CDT Inhaled Oxygen Concentration - - Weight 105.9 kg (233 lb 6.4 oz) 11/30/2023 2:00 PM CDT Height 167.6 cm (5' 6 ) 11/30/2023 2:00 PM CDT Body Mass Index 37.67 11/30/2023 2:00 PM CDT Plan of Treatment Health Maintenance Due Date Last Done Comments Depression Screening 1945 Fall Risk Assessment 1945 Hepatitis C Screening 1945 Osteoporosis Screening-Bone Density Scan 1945 DTaP/Tdap/Td Vaccine (1 - Tdap) 1957 Hepatitis B Screening 1964 Pneumococcal vaccine 65+ (1 of 1 - PCV) 1996 Zoster Vaccine (1 of 2) 1996 Well Visit 65+ 12/31/2011 Covid-19 Vaccine (3 - season) 04/08/202407/2021, 09/26/2020 Influenza Vaccine (#1) 2024 07/16/2021, 2019 Insurance MEDICARE [employer] SENIOR SUPPLEMENT Care Teams Accounting System Expert Relationship Specialty Start Date End Date Dutch Trinidad MD [address] [place] [address] PCP - General Internal Medicine 09/07/22
--- OUTSIDE RECORDS SUMMARY | 2024-11-09 14:47 | XMS_ITS ---
Author Organization [facility] Address [address] [place], [place] [address] Care Team Providers Care Acidizer Water Well Name Role Phone ELEN ROJAS Unavailable [phone] Dutch Trinidad Unavailable Unavailable SANJIV CHONG Unavailable [phone] REASON FOR VISIT *General care Medications Medication SIG (Take, Route, Frequency, Duration) Notes Start Date End Date Status nabumetone 500 MG Oral Tablet [Relafen] ORAL nabumetone 500 MG Oral Tablet [Relafen]Original Medicationnabumetone 500 MG Oral Tablet [Relafen] *Reorder from [employer] for eRx and Interaction Alerts* 08/03/2013 Active Ciclopirox Olamine 0.77 % Active Vital Signs Height 67.00 in 09/15/2023 Weight 220 lbs 09/15/2023 BMI 34.45 kg/m2 09/15/2023 Height-cm 170.18 cm 09/15/2023 Weight-kg 99.79 kg 09/15/2023 Encounters Encounter Location Date Provider Diagnosis [facility] [address], [place] [id number] 09/15/2023 SANJIV CHONG Other hammer toe(s) (acquired), right foot M20.41 ; Tinea unguium B35.1 ; Other hammer toe(s) (acquired), left foot M20.42 ; Pain in right toe(s) M79.674 ; Pain in left toe(s) M79.675 and 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 The patient was given education about shoe recommendations specific for the condition. The patient was educated about custom orthotics and how appropriate shoes and orthotics can prevent further worsening of the deformity. The patient was educated about how bad shoe habits can worsen the condition. NSAIDS, P.T., injections and other conservative treatments were discussed. Both surgical and non surgical treatments were discussed, but conservative options were emphasized. 09/15/2023 Tinea unguium (ICD-10 - B35.1) Aseptic debridement of elongated thickened nails x 10 using sterile nippers, nails were debrided in length and thickness by 30% utilizing a nail nipper without incident. The patient was educated regarding all treatment options that include topical and oral antifungal treatments. I discussed the options of taking a sample of the nail to confirm diagnosis. Nail clippings were not sent for pathology analysis. The patient was educated why and how the fungal infection evolved in their feet and the patient was given information regarding how to prevent further infection. The patient was told to keep feet dry and change socks. The patient was told to be careful with old shoes and excessive sweating. The patient was educated regarding both OTC and prescription treatments. 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 The patient was given education about shoe recommendations specific for the condition. The patient was educated about custom orthotics and how appropriate shoes and orthotics can prevent further worsening of the deformity. The patient was educated about how bad shoe habits can worsen the condition. NSAIDS, P.T., injections and other conservative treatments were discussed. Both surgical and non surgical treatments were discussed, but conservative options were emphasized. Tinea unguium Aseptic debridement of elongated thickened nails x 10 using sterile nippers, nails were debrided in length and thickness by 30% utilizing a nail nipper without incident. The patient was educated regarding all treatment options that include topical and oral antifungal treatments. I discussed the options of taking a sample of the nail to confirm diagnosis. Nail clippings were not sent for pathology analysis. The patient was educated why and how the fungal infection evolved in their feet and the patient was given information regarding how to prevent further infection. The patient was told to keep feet dry and change socks. The patient was told to be careful with old shoes and excessive sweating. The patient was educated regarding both OTC and prescription treatments. 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 Subjective: * Chief Complaints: * 1 . *General care. * HPI: H PI: General care P atient presents to the office for at risk foot care. Patient states that their nails are thickened, elongated and painful. Patient states that it is aggravated by shoe gear. Onset is gradual. Patient denies being diabetic., Patient denies taking prescription blood thinners but does take a daily aspirin., Date last seen by Dr. Trinidad was August 2023., Initials EW. * ROS: G eneral / Constitutional: Patient denies w eakness. R espiratory: Patient denies c hronic cough, shortness of breath, sputum production. C ardiovascular: Patient denies c hest pain, history of MS, irregular heartbeat. M usculoskeletal: Patient complains of h ammertoes. P eripheral Vascular: Patient denies b lanching of skin, cold extremities, decreased sensation in extremities. S kin: Patient complains of f ungal nails, nail changes. ? N eurologic: Patient denies d izziness, gait abnormality, headache. * Medical History: * Social History: M igrated Social History: M igrated Social History: History of tobacco use : , Smoking Status : Never smoked , Alcohol intake :. * Medications: T aking nabumetone 500 MG Oral Tablet [Relafen] ORAL , Notes to Pharmacist: nabumetone 500 MG Oral Tablet [Relafen]Original Medicationnabumetone 500 MG Oral Tablet [Relafen] *Reorder from [employer] for eRx and Interaction Alerts*, Taking Ciclopirox Olamine 0.77 % Cream Objective: * Vitals: W t: 220 lbs, Wt-k.79 kg, Ht: 67.00 in, Ht-cm: 170.18 cm, BMI: 34.45 Index, Body Surface Area: 2.17. * Examination: P hysical Examination: V ascular: Dorsalis Pedis pulse noted at 1/4 right foot and 1/4 left foot and Posterior Tibial pulse noted at 1/4 right foot and 1/4 left foot, Capillary refill times noted to be less than three seconds x ten, Temperature gradient noted to be warm to cool to bilateral foot, pedal hair present to bilateral foot and no varicosities are noted Dermatologic: there are no open lesions, no signs of active clinical infection, no erythema noted, no ecchymoses, nails are elongated thickened and dystrophic with subungual debris x ten Musculoskeletal: there is pain to palpation onto nail plate x ten, no calf pain noted bilaterally, arch height noted at 2/5 non-weight bearing bilaterally, first metatarsophalangeal joint range of motion 30 deg non-weight bearing bilaterally, flexible fifth digit hammer toe deformity noted to bilateral foot reducible with kelikian push up test Neurology: protective sensation intact to light touch bilateral digits one through five, vibratory sensation intact to first metatarsophalangeal joint bilaterally. Assessment: * Assessment: 1. T inea unguium - B35.1 (Primary) 2 . O ther hammer toe(s) (acquired), right foot - M20.41 3 . O ther hammer toe(s) (acquired), left foot - M20.42 4 . P ain in right toe(s) - M79.674 5 . P ain in left toe(s) - M79.675 6 . 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 O ther hammer toe(s) (acquired), right foot Notes: The patient was educated regarding how to mechanically stabilize their deformity. The patient was given education about shoe recommendations specific for the condition. The patient was educated about custom orthotics and how appropriate shoes and orthotics can prevent further worsening of the deformity. The patient was educated about how bad shoe habits can worsen the condition. NSAIDS, P.T., injections and other conservative treatments were discussed. Both surgical and non surgical treatments were discussed, but conservative options were emphasized. 3. U nspecified atherosclerosis of gila river arteries of extremities, bilateral legs Notes: Patient educated on risks and aggravating factors of PVD, including conservative treatment options such as a diet and exercise regimen to aid in slowing progression of vascular disease ? * Procedure Codes: 1 1721 DEBRIDE NAIL, 6 OR MORE, Modifiers: Q8 * Follow Up: 3 Months * Billing Information: * Visit Code: * Procedure Codes: 28000 DEBRIDE NAIL, 6 OR MORE. Modifiers: Q8 * PTIONIST SCHEDULER Sign off status: Completed true * Provider: Maria Victoria CHONG Date: 0 09/15/2023 Generated for Deisy henry/Nina/Denis on: 0 11/09/2024 02:47 PM CDT History and Physical Notes * HPI (History of Present Illness) Category Sub-Category Detail Notes Category Not es HPI General care Patient presents to the office for at risk foot care. Patient states that their nails are thickened, elongated and painful. Patient states that it is aggravated by shoe gear. Onset is gradual. Patient denies being diabetic., Patient denies taking prescription blood thinners but does take a daily aspirin., Date last seen by Dr. Trinidad was August 2023., Initials EW Examination Category Sub-Category Detail Notes Category Not es Physical Examination Vascular: Dorsalis Pedis pulse noted at 1/4 right foot and 1/4 left foot and Posterior Tibial pulse noted at 1/4 right foot and 1/4 left foot, Capillary refill times noted to be less than three seconds x ten, Temperature gradient noted to be warm to cool to bilateral foot, pedal hair present to bilateral foot and no varicosities are noted Dermatologic: there are no open lesions, no signs of active clinical infection, no erythema noted, no ecchymoses, nails are elongated thickened and dystrophic with subungual debris x ten Musculoskeletal: there is pain to palpation onto nail plate x ten, no calf pain noted bilaterally, arch height noted at 2/5 non-weight bearing bilaterally, first metatarsophalangeal joint range of motion 30 deg non-weight bearing bilaterally, flexible fifth digit hammer toe deformity noted to bilateral foot reducible with kelikian push up test Neurology: protective sensation intact to light touch bilateral digits one through five, vibratory sensation intact to first metatarsophalangeal joint bilaterally
--- OUTSIDE RECORDS SUMMARY | 2024-11-09 14:47 | XMS_ITS | Referral Summary ---
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
--- OUTSIDE RECORDS SUMMARY | 2024-11-09 14:47 | XMS_ITS | Clinical Summary ---
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 Gender Identity Not on file Sexual Orientation Not on file Plan of Treatment Health Maintenance Due Date Last Done Comments Hepatitis C 1963 DTaP, Tdap and Td Vaccines ( 1 - Tdap) 1965 Zoster Vaccines (1 of 2) 1996 Dexa Scan (General) 12/31/2011 Pneumococcal Vaccine: 65+ Ye ars (1 of 1 - PCV) 12/31/2011 RSV Immunization or 60+ Years (1 - 1-dose 75+ series) 2021 COVID-19 Vaccine (2023-2 5 season) 2024 Influenza Adult (#1) 2024 Meningococcal B Vaccine Aged Out No l onger eligible based on patient's age to complete this topic Meningococcal Vaccine Aged Out No yue jabier eligible based on patient's age to complete this topic RSV Immunizations Under 20 Months Aged Out No longer eligible based on patient's age to complete this topic
--- OUTSIDE RECORDS SUMMARY | 2024-11-09 14:47 | XMS_ITS | Clinical Summary ---
Author Organization [facility] Address [address] [place] [address] Care Team Providers Care Automatic Developer Name Role Phone Mateus Pedroza MD Unavailable [phone] Dutch Trinidad MD Primary Care Provider [phone] Source Comments [facility],non-owned Affiliates and Associated Physician Practices is amultiple site organization consisting of ambulatory clinics and hospital sitesin [place], [place], [place] and [place]. This disclosure is being madepursuant to the Care Everywhere program and may not contain all information available regarding this patient. Last updated 18.[facility] [employer] Allergies No known active allergies Medications * Be aware that medications may not be up to date on this document. Alwaysverify current medications with the patient. Medication Sig Dispensed Refills Start Date End Date Status gabapentin (NEURONTIN) 300 MG capsule Take 2 (two) capsules by mouth at bedtime 01/19/2019 Active Vitamin D3, cholecalciferol, 50 MCG (2000 UT) tablet Take 1 (one) tablet by mouth once daily Active Cyanocobalamin (VITAMIN B-12 1000 MCG) 1000 MCG SUBL Take 1 tablet by mouth once daily 08/14/2022 Active ascorbic acid (Vitamin C) 500 MG tablet Take 1 (one) tablet by mouth once daily Active oxyCODONE, immediate release, (Roxicodone) 5 MG tabletIndications:Prim agnes osteoarthritis of left knee Take 1 (one) tablet to 2 (two) tablets by mouth every 6 hours as needed for Pain (pain) 56 tablet 02/04/2023 Active amoxicillin-clavulanat e (Augmentin) 875-125 MG tablet Take 1 (one) tablet by mouth every 12 hours 02/21/2023 Active celecoxib (CeleBREX) 200 MG capsule TAKE 1 CAPSULE BY MOUTH TWICE A DAY 60 capsule 5 02/06/2024 Active Active Problems Problem Noted Date Diagnosed Date 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 Never 02/03/2023 Q2: How many drinks containi ng alcohol do you have on a typical day when you are drinking? Patient does not drink Q3: How often do you have si x or more drinks on one occasion? Never 02/03/2023 Sex and Gender Information Value Date Recorded Sex Assigned at Not on file Gender Identity Not on file Sexual Orientation Not on file Last Filed Vital Signs Vital Sign Reading Time Taken Comments Blood Pressure 133/66 02/05/2023 8:08 AM CDT Pulse 82 02/05/2023 8:08 AM CDT Temperature 36.8 C (98.2 F) 02/05/2023 8:08 AM CDT Respiratory Rate 16 02/05/2023 8:0 8 AM CDT Oxygen Saturation 96% 02/05/2023 8:08 AM CDT Inhaled Oxygen Concentration - - Weight 106.5 kg (234 lb 12.8 oz) 02/03/2023 8:53 AM CDT Height 165.1 cm (5' 5 ) 02/03/2023 8:53 AM CDT Body Mass Index 39.07 02/03/2023 8:53 AM CDT Plan of Treatment Health Maintenance Due Date Last Done Comments BONE DENSITY TESTING 1945 MEDICARE AWV 12 MONTHS 1945 HEPATITIS C SCREENING 12/25/1964 DTAP/TDAP/TD VACCINES (1 - Tdap) 1965 PNEUMOCOCCAL VACCINE 50+ (1 of 1 - PCV) 1996 ZOSTER VACCINE (1 of 2) 1996 Respiratory Syncytial Virus (RSV) Vaccine Pt: or over 60 yrs (1 - 1-dose 75+ series) 2021 COVID-19 VACCINE (2023-2 5 season) 2024 INFLUENZA VACCINE (#1) 2024 DEPRESSION SCREENING 08/08/2024 HEPATITIS B VACCINE Aged Out No longe r eligible based on patient's age to complete this topic HIB VACCINE Aged Out No longer eligi ble based on patient's age to complete this topic HPV VACCINE Aged Out No longer eligi ble based on patient's age to complete this topic MENINGOCOCCAL (Group B) VACC INE SHARED DECISION-MAKING Aged Out No longer eligibl e based on patient's age to complete this topic MENINGOCOCCAL GROUPS A/C/Y/W VACCINE Aged Out No longer eligible b ased on patient's age to complete this topic Medical Devices Implanted Type Area Parts Processor Device Identifier Shelf Expiration Date Model / Serial / Lot Cmnt Bone Refobacin Strl Lf Disp Implanted:Qty: 1 on 02/03/2023 by Mateus Pedroza MD at [facility] Left: Knee [employer] 03/07/2025 [id number] / / [id number] Cmpnt Fem Kn Lt Cr Cmnt Prm Vngrd Intlk Implanted:Qty: 1 on 02/03/2023 by Mateus Pedroza MD at [facility] Left: Knee [employer] 11/13/2032 [id number] / / [id number] Cmpnt Ptlr Std 28mm 3 Pg Kn Ser A Implanted:Qty: 1 on 02/03/2023 by Mateus Pedroza MD at [facility] Left: Knee [employer] 12/04/2027 [id number] / / [id number] Tray Tib 71mm Kn Cocr I Beam Implanted:Qty: 1 on 02/03/2023 by Mateus Pedroza MD at [facility] Left: Knee [employer] 11/16/2032 [id number] / / [id number] Brng [id number] Vngrd Arcm Kn Ant Stab Implanted:Qty: 1 on 02/03/2023 by Mateus Pedroza MD at [facility] Left: Knee [employer] 12/24/2027 [id number] / / [id number] Advance Directives * Full Code (Latest Code Status on File) Date Activated Date Inactivated Comments 02/03/2023 2:26 PM 02/05/2023 2:41 PM Care Teams Automatic Developer Relationship Specialty Start Date End Date Dutch Trinidad MD [address] [place] [address] PCP - General Internal Medicine 01/10/23 [place] [id number] [address] Orthopedic Surgery 07/12/19
--- OUTSIDE RECORDS SUMMARY | 2024-11-09 14:47 | XMS_ITS | Patient Health Record ---
Author Organization [facility] Address [address] [place], [place] [id number] Care Team Providers Care Real Estate Transaction Manager Name Role Phone ROSALINO ROJASIC Unavailable [phone] Dutch Trinidad Unavailable Unavailable KWAMEFRANCESCO SANJIV Unavailable [phone] Allergies No Known Allergies Reason For Referral No Information Medications Medication SIG (Take, Route, Frequency, Duration) Notes Start Date End Date Status Ciclopirox 8 % 1 application Externally to toenails Once a day. for 30 days Remove medication once a week with rubbing alcohol. One bottle, 6.6mL or similar 10/25/2024 Active nabumetone 500 MG Oral Tablet [Relafen] ORAL nabumetone 500 MG Oral Tablet [Relafen]Original Medicationnabumetone 500 MG Oral Tablet [Relafen] *Reorder from [employer] for eRx and Interaction Alerts* 08/03/2013 Active Ciclopirox Olamine 0.77 % Active Encounters Encounter Location Date Provider Diagnosis [address] [id number] 10/25/2024 ELEN MARIA ESTHERSonia Tinea unguium B35.1 ; Pain in right toe(s) M79.674 ; Pain in left toe(s) M79.675 and Atherosclerosis of [place] arteries of extremities with intermittent claudication, bilateral legs I70.213 Assessments Encounter Date Diagnosis (ICD Code) Assessment Notes Treatment Notes Treatment Clinical Notes Section Notes 10/25/2024 Tinea unguium (ICD-10 - B35.1) FUNGAL TOENAILS: Discussed various treatment options for fungal toenails including debridement, topical antifungals, oral antifungals, toenail avulsion, or toenail matrixectomy. NAIL DEBRIDEMENT: Nails 1-5 Bilateral were debrided extensively with nail nippers and emery board, reducing length and girth to pink healthy tissue with any subungual debris and necrotic tissue removed 10/25/2024 Pain in right toe(s) (ICD-10 - M79.674) 10/25/2024 Pain in left toe(s) (ICD-10 - M79.675) 10/25/2024 Atherosclerosis of [place] arteries of extremities with intermittent claudication, bilateral legs (ICD-10 - I70.213) Plan Of Treatment Next Appt Details Provider Name:SHERWIN RIDLEY, 12/27/2024 10:50:00 AM, [address] [place] [address], [phone], Insurance Providers Payer Name Payer Address Payer Phone Subscriber Number Group Number Insured Name Patient Relationship to Insured Coverage Start Date Coverage End Date Medicare Part B [place] [address] [place] [address] [id number] SANGEETHA HUSSEIN Self - patient is the [facility] [address] [address] [place] [address] [id number] SANGEETHA HUSSEIN Self - patient is the insured [facility] [address] [place], [place] [phone] [id number] SANGEETHA HUSSEIN Self - patient is the insured
--- OUTSIDE RECORDS SUMMARY | 2024-11-09 14:47 | XMS_ITS ---
Author Organization [facility] Address [address] [place], [place] [id number] Care Team Providers Care Coil Placer Name Role Phone ELEN ROJAS Unavailable [phone] Dutch Trinidad Unavailable Unavailable REASON FOR VISIT Patient presents for at-risk foot care . The patient has painful toenails that cause difficulty with ambulation and shoegear. The onset is gradual Medications Medication SIG (Take, Route, Frequency, Duration) Notes Start Date End Date Status Ciclopirox 8 % 1 application Externally to toenails Once a day. for 30 days Remove medication once a week with rubbing alcohol. One bottle, 6.6mL or similar 10/25/2024 5 Active nabumetone 500 MG Oral Tablet [Relafen] ORAL nabumetone 500 MG Oral Tablet [Relafen]Original Medicationnabumetone 500 MG Oral Tablet [Relafen] *Reorder from [employer] for eRx and Interaction Alerts* 08/03/2013 Active Ciclopirox Olamine 0.77 % Active Encounters Encounter Location Date Provider Diagnosis [address] [id number] 10/25/2024 ELEN ROJAS Tinea unguium B35.1 ; Pain in right toe(s) M79.674 ; Pain in left toe(s) M79.675 and Atherosclerosis of [place] arteries of extremities with intermittent claudication, bilateral [...] toe(s) (ICD-10 - M79.675) 10/25/2024 Atherosclerosis of [place] arteries of extremities with intermittent claudication, bilateral legs (ICD-10 - I70.213) Plan Of Treatment Medication Medication Name Sig Start Date Stop Date Notes Ciclopirox 8 % 1 application Mechanical Intern ally to toenails Once a day. for 30 days 10/25/2024 04/23/2025 One bottle, 6.6mL or similar Treatment Notes Assessment Notes Tinea unguium FUNGAL TOENAILS: Discussed various treatment options for fungal toenails including debridement, topical antifungals, oral antifungals, toenail avulsion, or toenail matrixectomy. NAIL DEBRIDEMENT: Nails 1-5 Bilateral were debrided extensively with nail nippers and emery board, reducing length and girth to pink healthy tissue with any subungual debris and necrotic tissue removed Next Appt Details Follow Up: 10-12 Weeks, Reas on: At Risk Foot care, sooner if problems arise Provider Name:SHERWIN RIDLEY, 12/27/2024 10:50:00 AM, [address] [place] [address], [phone], Progress Notes * SANGEETHA HUSSEIN HDOB: [birth year] (78 yo F)Acc No.[id number]:10/25/2024 Patient: Viki ALEXSANGEETHA Provider: Merrill Rojas DPM :1945 A ge:78 Y S ex:Female Date:10/25/2024 Address:[address] [place] [address], [facility] Subjective: * Chief Complaints: * 1 . Patient presents for at-risk foot care . The patient has painful toenails that cause difficulty with ambulation and shoegear. The onset is gradual. * HPI: H PI: General care P jennie presents to the office for at risk foot care. Patient states that their nails are thickened, elongated and painful. Patient states that it is aggravated by shoe gear. Onset is gradual. Patient denies being diabetic., Patient denies taking blood thinners., Date last seen by Dr. Trinidad was 10/2024., Initials mca. sample. * Medical History: * Family History: F ather: PRN - Father: . M other: PRN - Mother: . S ister: SIB - Sister: . * Social History: M igrated Social History: M igrated Social History: History of tobacco use : , Smoking Status : Never smoked , Alcohol intake :. * Medications: T aking nabumetone 500 MG Oral Tablet [Relafen] ORAL , Notes to Pharmacist: nabumetone 500 MG Oral Tablet [Relafen]Original Medicationnabumetone 500 MG Oral Tablet [Relafen] *Reorder from [employer] for eRx and Interaction Alerts*, Taking Ciclopirox Olamine 0.77 % Cream , Medication List reviewed and reconciled with the patient Objective: * Vitals: * Examination: C onstitutional: Constitutional T he patient is awake, alert, well developed, well groomed and well nourished. D ermatologic: Skin findings: S kin is thin, atrophic and lacking pedal hair. Nail pathology: N ails 1, 2, 3, 4, and 5 bilateral are elongated, thick, discolored, and dystrophic with subungual debris. They are painful to palpation. ? V ascular: Dorsalis pedis pulse: 1 /4 b ilateral. Posterior tibial pulse: 0 /4 b ilateral. Capillary refill: g reater than 3 seconds. Edema: N o edema, bilateral. N eurologic: Gross sensation G ross sensation is intact to light touch.? M usculoskeletal: Muscle Strength M uscle strength is 5/5 in regards to dorsiflexion, plantarflexion, inversion, and eversion in bilateral lower extremities. ? Assessment: * Assessment: 1. T inea unguium - B35.1 (Primary) 2 . P ain in right toe(s) - M79.674? 3. P ain in left toe(s) - M79.675 4 . A therosclerosis of [place] arteries of extremities with intermittent claudication, bilateral legs - I70.213 Plan: * Treatment: * Procedure Codes: 1 1721 DEBRIDE NAIL, 6 OR MORE, Modifiers: Q8 * Follow Up: 1 0-12 Weeks (Reason: At Risk Foot care, sooner if problems arise) * Billing Information: * Visit Code: * Procedure Codes: 64952 DEBRIDE NAIL, 6 OR MORE. Modifiers: Q8 * Electronic signature of ELEN ROJAS DPM on 11/09/2024 at 02:47 PM CDT Sign off status: Pending * Provider: Merrill Rojas DPM Date: 0 10/25/2024 Generated for Deisy henry/Nina/Denis on: 0 11/09/2024 [...] Patient denies being diabetic., Patient denies taking blood thinners., Date last seen by Dr. Trinidad was 10/2024., Initials mca sample Examination Category Sub-Category Detail Notes Category Not es Dermatologic Skin findings: Skin is thin, at rophic and lacking pedal hair Nail pathology: Nails 1, 2, 3, 4, an d 5 bilateral are elongated, thick, discolored, and dystrophic with subungual debris. They are painful to palpation Neurologic Gross sensation Gross sensation is intact to light touch Vascular Dorsalis pedis pulse: 1/4 bilateral Edema: No edema, bilateral Capillary refill: greater than 3 secon ds Posterior tibial pulse: 0/4 bilateral Musculoskeletal Muscle Strength Muscle strength is 5/5 in regards to dorsiflexion, plantarflexion, inversion, and eversion in bilateral lower extremities Constitutional Constitutional The patient is a wake, alert, well developed, well groomed and well nourished
[2024-11-09 15:02] LABS: Hematocrit 41.6 % (35.0-42.0); Hemoglobin 13.1 g/dL (11.7-13.8); Mean Corpuscular HGB Conc 31.5 g/dL (32-36); Mean Corpuscular Hemoglobin 29.2 pg (27.0-31.0); Mean Corpuscular Volume 92.9 fL (78.0-102.0); Mean Platelet Volume 9.6 fl (9.2-11.8); Platelet Count Result 216 K/mm3 (150-420); Red Blood Count 4.48 M/mm3 (4.20-5.40)
[2024-11-09 15:39] LABS: Anion Gap 6 mmol/L (4-12); Blood Urea Nitrogen 13 mg/dL (7-18); Calcium 8.8 mg/dL (8.5-10.1); Carbon Dioxide 31 mmol/L (21-32); Chloride 105 mmol/L (98-108); Estimated Glomerular Filt Rate > 60; Glucose 114 mg/dL (70-99); NT Pro B Type Natriuretic Pept 164 pg/mL (0-450); Osmolality Calculated 295 mOsm/kg (285-295); Potassium 3.9 mmol/L (3.5-5.1); Sodium 142 mmol/L (136-145)
== END 2024-11-09 14:40 | disposition home or self-care (01) ==
PROVIDERS: PCP Internal Medicine; Visit Provider Internal Medicine
DX: R05.9 Cough, unspecified (principal); K44.9 Diaphragmatic hernia without obstruction or gangrene; R06.02 Shortness of breath
CPT/HCPCS: 36415; 71046; 80048; 83880; 85027

== ENCOUNTER 2025-07-16 09:55 | Outpatient (CLI) | payer MEDICARE, OTHER, SELFPAY ==
--- NOTE | ~2025-07-16 | XR_ITS ---
XR lumbar spine 2-3V Indication: OSTEOPOROSIS,LOW BACK PAIN, CARDIAC MURMUR Comparison: None Findings: Grade 1 anterolisthesis of L4 on L5 with remote compression fractures of T12 and L1 with loss of height T12 50%. No acute fracture. Moderate osteopenia. Moderate loss of disc height throughout. Soft tissues unremarkable Impression: No acute abnormality. Reviewed, dictated and finalized at location P. [facility] Impression: No acute abnormality.
--- NOTE | ~2025-07-16 | DEXA_ITS ---
Bone Density Report Name: SANGEETHA HUSSEIN Age: 79 Sex: Female Ethnicity: White Date of : 1945 Indication: postmenopausal; screening for osteoporosis; height loss; prior fracture; Referring Provider: Dutch Trinidad Study: Bone densitometry was performed. Exam Date: July 16, 2025 Accession number: [id number] Bone Density: Region BMD T-score Z-score Classification AP Spine(L2, L3, L4) 1.053 -0.2 2.4 Normal Femoral Neck (Left) 0.624 -2.0 0.2 Osteopenia Total Hip (Left) 0.883 -0.5 1.5 Normal Femoral Neck (Right) 0.720 -1.2 1.1 Osteopenia Total Hip (Right) 0.944 0.0 2.0 Normal Femoral Neck Mean 0.672 -1.6 0.6 Osteopenia Total Hip Mean 0.913 -0.2 1.7 Normal World Health Organization criteria for BMD impression classify patients as: Normal (T-score at or above -1.0), Osteopenia (T-score between -1.0 and -2.5), or Osteoporosis (T-score at or below -2.5). 10-year Fracture Risk(1): Major Osteoporotic Fracture 20% Hip Fracture 4.9% Reported Risk Factors: [place] (), Neck BMD=0.624, BMI=38.1, previous fracture (1) FRAX(R) Version 3.08. Fracture probability calculated for an untreated patient. Fracture probability may be lower if the patient has received treatment. Clinical Information Provided by Patient: Has had a low trauma fracture Has used the following medications: Vitamin D Patient maximum height was 66 Menopause Age: 51 No regular weight bearing exercise Drinks caffeinated beverages Onset of menses at age 14 Number of children 4 Impression: The patient has low bone mass, based on the Left Femoral Neck T-score. The patient has risk factors, including: previous fracture. Discussion: BONE DENSITY IS LOW AT ONE OR MORE SKELETAL SITES. This patient's lowest T-score is low at one or more skeletal sites. It meets the World Health Organization's (WHO) criteria for ?low bone mass? (T-score between -1.0 and -2.5). The patient's 10-year risk of fracture as calculated by FRAX is less than the threshold where pharmacological therapy is recommended by the National Osteoporosis Foundation (NOF). However, all treatment decisions require clinical judgment and consideration of individual patient factors, including patient preferences, comorbidities, previous drug use, risk factors not captured in the FRAX model (e.g., frailty, falls, vitamin D deficiency, increased bone turnover, interval significant decline in bone density) and possible under or overestimation of fracture risk by FRAX. The patient should follow a healthful lifestyle (good nutrition with adequate calcium and vitamin D, and appropriate weight-bearing exercise). Follow-Up: Consider repeating this study in 2 to 3 years to reassess this patient's status, or sooner if there is some new clinical indication. Reported by: RAFAEL on 07/16/2025 10:44:00 AM. Reviewed, dictated and finalized at location A.
--- NOTE | 2025-07-16 10:10 | ECHO_ITS ---
Patient Info Name: Umu Banuelos Age: 79 years : 1945 Gender: Female Ht: 65 in Wt: 226 lbs BSA: 2.22 m2 HR: 54 bpm BP: 169 / 105 mmHg Technical Quality: Fair Exam Date: 07/16/2025 10:11 AM Patient Status: O Admit Date: 07/16/2025 Exam Type: CA echo doppler color flow Complete two-dimensional, color flow and Doppler transthoracic echocardiogram is performed. Staff Referring Physician: Dutch Trinidad MD Oil Well Perforator Operator: Ishaan Chakraborty III Attending Provider: Dutch Trinidad MD Summary 1. Complete two-dimensional, color flow and Doppler transthoracic echocardiogram is performed. 2. Left ventricular chamber dimension is normal. 3. Left ventricular systolic function is normal, estimated at 65-70. 4. The left ventricular diastolic function is abnormal. 5. E/e' 16 is elevated. 6. Left atrial chamber dimension is moderately enlarged. 7. Right atrial chamber dimension is moderately enlarged. 8. There is mild aortic valve sclerosis. 9. The mitral valve has a mildly calcified annulus. 10. There is moderate tricuspid valve regurgitation. 11. Mild pulmonary hypertension, estimated pulmonary arterial systolic pressure is 48 mmHg. Left Ventricle E/e' 16 is elevated. Left ventricular chamber dimension is normal. Left ventricular systolic function is normal, estimated at 65-70. The left ventricular diastolic function is abnormal. Right Ventricle Right ventricular chamber dimension is normal. Right ventricular systolic function is normal. Left Atria Left atrial chamber dimension is moderately enlarged. Right Atria Right atrial chamber dimension is moderately enlarged. Aortic Valve The aortic valve is trileaflet. There is mild aortic valve sclerosis. There is no aortic valve stenosis. There is no aortic valve regurgitation. Pulmonic Valve There is no pulmonic regurgitation. Mitral Valve The mitral valve has a mildly calcified annulus. There is no mitral valve stenosis. There is no mitral valve regurgitation. Tricuspid Valve There is moderate tricuspid valve regurgitation. Mild pulmonary hypertension, estimated pulmonary arterial systolic pressure is 48 mmHg. Pericardium/Pleural There is no pericardial effusion. Inferior Vena Cava Normal inferior vena cava with >50% collapse upon inspiration consistent with normal right atrial pressure, 5 mmHg. Aorta The aortic root size at the sinus of Valsalva is normal. Left Ventricular Outflow Tract Name Value Normal LVOT 2D LVOT Diameter 2.0 cm LVOT Doppler LVOT Peak Velocity 143 cm/s LVOT Peak Gradient 7 mmHg LVOT Mean Gradient 4 mmHg LVOT VTI 37 cm LVOT VTI/AV VTI Ratio 0.7 LVOT Stroke Volume 115 ml LVOT CO 5.7 l/min LVOT CI 2.6 l/min/m2 Pulmonic Valve Name Value Normal PV Doppler PV Peak Velocity 128 cm/s PV Peak Gradient 7 mmHg PV Mean Gradient 4 mmHg Mitral Valve Name Value Normal MV Doppler MV Peak Gradient 8 mmHg MV Mean Gradient 3 mmHg MV Area (Cont Eq VTI) 2.5 cm2 MV Diastolic Function MV E Peak Velocity 7 cm/s MV A Peak Velocity 86 cm/s MV E/A 0.1 MV Decel Time (PW) 252 ms MV Annular TDI MV E/e' (Septal) 16.4 MV E/e' (Lateral) 15.2 MV E/e' (Average) 15.8 Tricuspid Valve Name Value Normal TV Regurgitation Doppler TR Peak Velocity 327 cm/s TR Peak Gradient 43 mmHg Estimated PAP/RSVP RA Pressure 5 mmHg <=5 PA Systolic Pressure 48 mmHg <36 RV Systolic Pressure 48 mmHg <36 TV Annular TDI TV Lateral Marcia s' Velocity 14.6 cm/s >=9.5 Aortic Valve Name Value Normal AV Doppler AV Peak Velocity 198 cm/s AV Peak Gradient 14 mmHg AV Mean Gradient 8 mmHg AV VTI 50 cm AV Area (Cont Eq VTI) 2.3 cm2 >=3.0 AV Area (Cont Eq Dudley) 2.2 cm2 AV DI (Dudley) 0.72 AV Regurgitation 2D LVOT Area 3.1 cm2 Ventricles Name Value Normal LV Dimensions 2D/MM IVS Diastolic Thickness (2D) 1.1 cm 0.6-1.0 LVID Diastole (2D) 5.0 cm 3.8-5.2 LVIW Diastolic Thickness (2D) 1.1 cm 0.6-0.9 LVID Systole (2D) 3.3 cm 2.2-3.5 LVOT Diameter 2.0 cm LV Mass (2D Cubed) 203.69 g 67.00-162.00 LV Mass Index (2D Cubed) 92 g/m2 43-95 Relative Wall Thickness (2D) 0.44 <=0.42 LV Fractional Shortening/Ejection Fraction 2D/MM LV Fractional Shortening (2D) 37 % 27-45 LV EF (2D Teichholz) 64 % LV Diastolic Volume (4C MOD) 65 ml LV EF (4C MOD) 66 % LV Diastolic Volume (2C MOD) 81 ml LV EF (2C MOD) 64 % LV Diastolic Volume (BP MOD) 78 ml 46-106 LV Diastolic Volume Index (BP MOD) 35 ml/m2 29-61 LV Systolic Volume (BP MOD) 27 ml 14-42 LV Systolic Volume Index (BP MOD) 12 ml/m2 8-24 LV EF (BP MOD) 66 % 54-74 LV Diastolic Length (4C) 6.9 cm LV Systolic Length (4C) 5.6 cm LV Stroke Volume (4C MOD) 43 ml Atria Name Value Normal LA Dimensions LA Volume (4C A-L) 72 ml LA Volume (BP A-L) 79 ml RA Dimensions RA Systolic Major [place] Length (4C) 6.6 cm 2.2-2.8 RA Area (4C) 22.1 cm2 <=18.0 Report Signatures
== END 2025-07-16 09:56 | disposition home or self-care (01) ==
LOC: CHSIMG 10:01
PROVIDERS: PCP Internal Medicine; Visit Provider Internal Medicine
DX: M54.50 Low back pain, unspecified (principal); Z78.0 Asymptomatic menopausal state; R01.1 Cardiac murmur, unspecified; I35.8 Other nonrheumatic aortic valve disorders; I07.1 Rheumatic tricuspid insufficiency; I27.20 Pulmonary hypertension, unspecified; M85.89 Other specified disorders of bone density and structure, multiple sites
CPT/HCPCS: 72100; 77080; 93306